=== PATIENT | female | born 1985 | race Caucasian/White ===

== ENCOUNTER 2016-11-03 23:04 | Inpatient (IN) | payer MEDICAID ==
[2016-11-04 00:16] LABS: APPEARANCE,URINE CLEAR; BILIRUBIN,URINE NEGATIVE (NEGATIVE); GLUCOSE, URINE NEGATIVE (NEGATIVE); KETONES,URINE NEGATIVE (NEGATIVE); LEUKOCYTE ESTERASE,URINE NEGATIVE (NEGATIVE); NITRITE,URINE NEGATIVE (NEGATIVE); PROTEIN,URINE NEGATIVE (NEGATIVE); URINE SPECIFIC GRAVITY 1.023; UROBILINOGEN,URINE NEGATIVE mg/dL (<2.0)
[2016-11-04] MEDS ORDERED: ONDANSETRON 4 MG TAB.RAPDIS PO ONE (00:26)
[2016-11-04 01:07] LABS: ABSOLUTE BASOPHILS # (AUTO) 0.1 10^3/uL (0.0-0.2); ABSOLUTE EOSINOPHILS # (AUTO) 0.3 10^3/uL (0.0-0.6); ABSOLUTE LYMPHOCYTES (AUTO) 3.9 10^3/uL (0.5-4.7); ABSOLUTE MONOCYTES (AUTO) 0.9 10^3/uL (0.1-1.4); ABSOLUTE NEUT (AUTO) 10.2 10^3/uL (1.7-8.2); BASOPHILS % (AUTO) 0.4 % (0-2); HEMATOCRIT 37.7 % (36.0-47.0); HEMOGLOBIN 12.5 g/dL (12.0-15.5); HGB HCT DIFFERENCE -0.2; LYMPHOCYTES % (AUTO) 25.3 % (13-45); MEAN CORPUSCULAR HEMOGLOBIN 27.7 pg (27.0-33.4); MEAN CORPUSCULAR HGB CONC 33.1 g/dL (32.0-36.0); MEAN CORPUSCULAR VOLUME 84 fl (80-97); MONOCYTES % (AUTO) 6.2 % (3-13); RED BLOOD COUNT 4.51 10^6/uL (3.72-5.28); RED CELL DISTRIBUTION WIDTH 13.6 % (11.5-14.0); SEGMENTED NEUTROPHILS % (AUTO) 66.1 % (42-78); WHITE BLOOD COUNT 15.4 10^3/uL (4.0-10.5)
[2016-11-04 01:28] LABS: ALANINE AMINOTRANSFERASE 33 U/L (9-52); ALBUMIN 4.2 g/dL (3.5-5.0); ALKALINE PHOSPHATASE 80 U/L (38-126); ANION GAP 12 (5-19); ASPARTATE AMINO TRANSFERASE 60 U/L (14-36); BILIRUBIN,DIRECT 0.2 mg/dL (0.0-0.4); BILIRUBIN,TOTAL 0.2 mg/dL (0.2-1.3); BLOOD UREA NITROGEN 13 mg/dL (7-20); CALCIUM 9.2 mg/dL (8.4-10.2); CARBON DIOXIDE 25 mmol/L (22-30); CHLORIDE 105 mmol/L (98-107); CREATININE RESULT 0.65 mg/dL (0.52-1.25); GLUCOSE 90 mg/dL (75-110); LIPASE 48.9 U/L (23-300); POTASSIUM 3.6 mmol/L (3.6-5.0); SODIUM 141.5 mmol/L (137-145); TOTAL PROTEIN 7.6 g/dL (6.3-8.2)
[2016-11-04] MEDS ORDERED: KETOROLAC TROMETHAMINE INJ/PF 30 MG/1 ML SDV IV ONE (02:00)
[2016-11-04] MEDS: MORPHINE SULFATE 10 MG/ML INJ IV PRN ×4 (02:26→16:47)
[2016-11-04] MEDS ORDERED: LIDOCAINE 2% VISCOUS SOLN 20 ML UDCUP PO ONE (02:48)
[2016-11-04] MEDS ORDERED: METOCLOPRAMIDE HCL ORAL SOLN 10 MG/10 ML UDCUP PO ONE (02:48)
[2016-11-04] MEDS ORDERED: MAG HYDROX/AL HYDROX/SIMETH SUSP 30 ML UDCUP PO ONE (02:48)
--- NOTE | 2016-11-04 02:51 | ER Document Report ---
ED General - General Chief Complaint: Abdominal Pain Stated Complaint: ABDOMINAL PAIN Time Seen by Provider: 11/04/16 00:24 Notes: Patient is a 30-year-old female with past medical history of nephrolithiasis, no prior surgical history who presents with 45 hours of gradually onset epigastric and right upper quadrant abdominal pain. She does describe the pain as a severe, constant, aching, cramping pain. Nothing improves or worsens the pain. States he did start after eating [employer] today. States she had a similar episode 2 weeks ago and told that she may have gallstones. She has also had associated nausea without vomiting. - Related Data Allergies/Adverse Reactions: No Known Allergies Allergy (Unverified 11/03/16 23:53) Past Medical History - General Information source: Patient - Social History Smoking Status: Never Smoker Chew tobacco use (# tins/day): No Frequency of alcohol use: None Drug Abuse: None Lives with: Spouse/Significant other Family History: Reviewed & Not Pertinent Renal/ Medical History: Denies: Hx Peritoneal Dialysis Review of Systems - Review of Systems Notes: Constitutional: Negative for fever. HENT: Negative for sore throat. Eyes: Negative for visual changes. Cardiovascular: Negative for chest pain. Respiratory: Negative for shortness of breath. Gastrointestinal: Positive for abdominal pain and nausea Genitourinary: Negative for dysuria. Musculoskeletal: Negative for back pain. Skin: Negative for rash. Neurological: Negative for headaches, weakness or numbness. 10 point ROS negative except as marked above and in HPI. Physical Exam - Vital signs Vitals: Temp Pulse Resp BP Pulse Ox 98.0 F 78 16 112/67 100 11/03/16 23:53 11/03/16 23:53 11/03/16 23:53 11/03/16 23:53 11/03/16 23:53 Interpretation: Normal Notes: PHYSICAL EXAMINATION: GENERAL: Well-appearing, well-nourished and in no acute distress. HEAD: Atraumatic, normocephalic. EYES: Pupils equal round and reactive to light, extraocular movements intact, sclera anicteric, conjunctiva are normal. ENT: nares patent, oropharynx clear without exudates. Moist mucous membranes. NECK: Normal range of motion, supple without lymphadenopathy LUNGS: Breath sounds clear to auscultation bilaterally and equal. No wheezes rales or rhonchi. HEART: Regular rate and rhythm without murmurs ABDOMEN: Soft, mild right upper quadrant and epigastric abdominal discomfort on palpation, normoactive bowel sounds. No guarding, no rebound. No masses appreciated. EXTREMITIES: Normal range of motion, no pitting or edema. No cyanosis. NEUROLOGICAL: No focal neurological deficits. Moves all extremities spontaneously and on command. PSYCH: Normal mood, normal affect. SKIN: Warm, Dry, normal turgor, no rashes or lesions noted. Course - Re-evaluation Re-evalutation: 11/04/16 02:46 Patient presents with upper abdominal pain and right flank pain that has been present for the past 4-5 hours. She does have a history of a complicated nephrolithiasis in the past that has required lithotripsy. Abdominal exam is overall benign with mild epigastric and right upper quadrant tenderness without rebound or guarding. She has no lower abdominal tenderness. Right upper quadrant ultrasound without evidence of acute cholecystitis. Lipase is normal and no clinical history suggest acute pancreatitis. Her urinalysis is unremarkable without evidence of pyelonephritis or gross blood. A CT scan without contrast is obtained to evaluate for a possible right-sided kidney stone given her CVA tenderness and degree of pain. 11/04/16 03:24 CT has been read as a possible acute appendicitis. Repeat abdominal exam again continues to show right upper, right middle and, very mild right lower quadrant abdominal tenderness. She has no rebound tenderness of the right lower quadrant. At this point her clinical history and exam are somewhat inconsistent with acute appendicitis given CT reading and patient ongoing pain it is possible that this is an atypical or early presentation of acute appendicitis. I discussed this case with the surgeon material preparation worker Dr. Cruz will admit for serial abdominal exams and serial labs. I discussed this with the patient at length. She has been made nothing by mouth on maintenance fluids have been started. - Vital Signs Vital signs: Temp Pulse Resp BP Pulse Ox 98.0 F 78 16 112/67 100 11/03/16 23:53 11/03/16 23:53 11/03/16 23:53 11/03/16 23:53 11/03/16 23:53 - Laboratory Result Diagrams: 11/04/16 00:57 11/04/16 00:57 Laboratory results interpreted by me: 11/04/16 11/04/16 00:57 00:57 WBC 15.4 H Absolute Neutrophils 10.2 H AST 60 H - Diagnostic Test Radiology reviewed: Reports reviewed Discharge - Discharge Clinical Impression: Abdominal pain Qualifiers: Abdominal location: upper abdomen, unspecified Qualified Code(s): R10.10 - Upper abdominal pain, unspecified Condition: Fair Disposition: ADMITTED OBSERVATION Admitting Provider: Surgicalist - Nancy Unit Admitted: Surgical Floor
[2016-11-04] MEDS ORDERED: NORMAL SALINE 1000 ML 1,000 ML IV ONE (03:24)
[2016-11-04] MEDS ORDERED: GLUCAGON,HUMAN RECOMB 1 MG INJ SUBCUT PRN (05:43)
[2016-11-04] MEDS ORDERED: DEXTROSE 40% GEL 15 GM TUBE PO PRN ×2 (05:43)
[2016-11-04] MEDS ORDERED: DEXTROSE 50%-WATER 25 GM/50 ML DISP.SYRIN IV PRN ×2 (05:43)
[2016-11-04] MEDS ORDERED: HYDROMORPHONE HCL INJ/PF 2 MG/ML AMPULE IV PRN (05:58)
[2016-11-04] MEDS ORDERED: ONDANSETRON HCL INJ/PF 4 MG/2 ML SDV IV PRN (05:58)
[2016-11-04] MEDS ORDERED: NORMAL SALINE 1000 ML 1,000 ML IV PRN (05:59)
[2016-11-04 07:15] LABS: ABSOLUTE BASOPHILS # (AUTO) 0.1 10^3/uL (0.0-0.2); ABSOLUTE EOSINOPHILS # (AUTO) 0.2 10^3/uL (0.0-0.6); ABSOLUTE MONOCYTES (AUTO) 0.7 10^3/uL (0.1-1.4); ABSOLUTE NEUT (AUTO) 6.3 10^3/uL (1.7-8.2); BASOPHILS % (AUTO) 0.6 % (0-2); EOSINOPHILS % (AUTO) 2.1 % (0-6); HEMATOCRIT 34.1 % (36.0-47.0); HEMOGLOBIN 11.5 g/dL (12.0-15.5); HGB HCT DIFFERENCE 0.4; MEAN CORPUSCULAR HEMOGLOBIN 28.1 pg (27.0-33.4); MEAN CORPUSCULAR HGB CONC 33.7 g/dL (32.0-36.0); MEAN CORPUSCULAR VOLUME 83 fl (80-97); MONOCYTES % (AUTO) 6.3 % (3-13); RED BLOOD COUNT 4.09 10^6/uL (3.72-5.28); RED CELL DISTRIBUTION WIDTH 13.6 % (11.5-14.0); WHITE BLOOD COUNT 11.3 10^3/uL (4.0-10.5)
[2016-11-04] MEDS ORDERED: DIPHENHYDRAMINE HCL 50 MG/ML VIAL IV PRN ×2 (07:58→09:09)
[2016-11-04] MEDS ORDERED: ACETAMINOPHEN 100 ML IV ONE (08:43)
[2016-11-04] MEDS ORDERED: FENTANYL CITRATE INJ/PF 100 MCG/2 ML AMPUL ONE ×2 (08:43)
[2016-11-04] MEDS ORDERED: PROPOFOL INJ 200 MG/20 ML VIAL IV ONE (08:43)
[2016-11-04] MEDS ORDERED: MIDAZOLAM 2 MG/2 ML INJ ONE (08:43)
[2016-11-04] MEDS ORDERED: DEXMEDETOMIDINE INJ 80 MCG/20 ML VIAL IV ONE (08:44)
[2016-11-04] MEDS ORDERED: MORPHINE SULFATE 10 MG/ML INJ ONE (08:44)
[2016-11-04] MEDS ORDERED: BUPIVACAINE HCL 0.25 % INJ/PF (2.5 MG/1 ML) 30 ML VIAL ONE (08:50)
[2016-11-04] MEDS ORDERED: PIPERACILLIN SODIUM/TAZOBACTAM 3.375 GM in NORMAL SALINE 100 ML IV SCH (09:00)
[2016-11-04] MEDS ORDERED: FENTANYL CITRATE INJ/PF 100 MCG/2 ML AMPUL IV PRN ×3 (09:09)
[2016-11-04] MEDS ORDERED: PROMETHAZINE HCL INJ 25 MG/1 ML VIAL IV PRN ×2 (09:09)
[2016-11-04] MEDS ORDERED: MEPERIDINE HCL/PF INJ 25 MG/1 ML DISP.SYRIN IV PRN (09:09)
[2016-11-04] MEDS ORDERED: OXYCODONE-ACETAMINOPHEN 5-325 MG TABLET PO PRN ×2 (09:09)
[2016-11-04] MEDS ORDERED: MORPHINE SULFATE 10 MG/ML INJ IV PRN (09:09)
[2016-11-04] MEDS ORDERED: SCOPOLAMINE HYDROBROMIDE 1.5 MG PATCH.TD72 ONE (09:26)
[2016-11-04] MEDS ORDERED: CEFAZOLIN INJ 1 GM VIAL ONE (09:47)
[2016-11-04] MEDS ORDERED: BUPIVACAINE HCL 0.25 % INJ/PF (2.5 MG/1 ML) 30 ML VIAL INJ ONE ×2 (09:53→10:40)
--- NOTE | 2016-11-04 09:53 | HISTORY AND PHYSICAL E ---
CHIEF COMPLAINT: Abdominal pains. HISTORY OF PRESENT ILLNESS: This is a 30-year-old female, started complaining of pains in the right side of the abdomen about 7:00 last night after eating a few bites of chicken. There was associated nausea. The pains worsened and went to the emergency room, where a CAT scan of the abdomen was done which showed acute appendicitis. She denies any fever, no chills or dysuria. PAST HISTORY: 1. Right kidney stone about 8 years ago. 2. Tubal ligation in 2012. ALLERGIES: None known. FAMILY HISTORY: Noncontributory. SOCIAL HISTORY: Never smoked. Denies alcohol use and drug abuse. Lives with significant other. REVIEW OF SYSTEMS: As in HPI. Denies fever. No sore throat or visual changes. Denies chest pain, no shortness of breath. GASTROINTESTINAL: Positive for abdominal pains and nausea. GENITOURINARY: Negative for dysuria. MUSCULOSKELETAL: Negative for back pain. SKIN: Negative for rash. NEUROLOGICAL: No headache or numbness. A 10-point review of systems are negative except as noted above and in HPI. PHYSICAL EXAMINATION: VITAL SIGNS: Temp is 98 degrees Fahrenheit, pulse 78 per minute, respirations 16 per minute, blood pressure 112/67, pulse oximetry 100% on room air. GENERAL: A well-developed, well-nourished 30-year- old female, alert and oriented, in no apparent acute distress though complaining of pain in the right side of the abdomen. HEENT: Normocephalic. PERRLA. Conjunctivae normal. Neck, no adenopathy. Moist membranes. Oropharynx clear without exudates. LUNGS: Clear to auscultation, no wheezes. HEART: Regular sinus rhythm without murmurs. ABDOMEN: Soft with tenderness in the right upper quadrant, more severe in the right lower quadrant. No definite rebound at this time. EXTREMITIES: Normal range of motion, no edema. NEUROLOGIC: No focal neurologic deficit. PSYCHIATRIC: Normal mood and affect. SKIN: Warm and dry. IMPRESSION: Acute appendicitis. PLAN: Patient for laparoscopic appendectomy and started on IV antibiotics. DICTATING PHYSICIAN: SARAH ALMARAZ M.D. DT: 0000 PHY#: [id number] ID: [id number] JOB#: [id number] ACCT: [id number] cc:Cheyenne THAYER MD
[2016-11-04] MEDS: PIPERACILLIN SODIUM/TAZOBACTAM 3.375 GM in NORMAL SALINE 100 ML IV SCH ×2 (11:20→17:30)
--- NOTE | 2016-11-04 12:18 | OPERATIVE REPORT E ---
Operative Report NAME: AINSLEY SUTHERLAND : 1985 AGE: 30Y DATE OF SURGERY: 11/04/2016 ROOM: 533 PREOPERATIVE DIAGNOSIS: Acute appendicitis. POSTOPERATIVE DIAGNOSIS: Acute appendicitis. PROCEDURE: Laparoscopic appendectomy. ANESTHESIA: General. SURGEON: SARAH ALMARAZ M.D. INDICATION: This is a 30-year-old female who complained of right-sided abdominal pains around 7 o'clock last night, associated with nausea. She came to the emergency room, where a CAT scan of the abdomen revealed acute appendicitis. Procedure done is laparoscopic appendectomy. DESCRIPTION OF PROCEDURE: After adequate general anesthesia, the patient was placed in the supine position and the abdomen was prepped and draped in the usual sterile fashion. An appropriate timeout was done. Next, an infraumbilical incision was made through the tubal ligation operative scar and carried down to the fascia. The fascia was then grasped on each side with Kika clamp and the fascia opened. Finger dissection was then done to the fascia into the abdominal cavity. There were a few adhesions noted that were lysed bluntly. Next, a Wilian trocar was then inserted into the abdominal cavity and CO2 insufflated up to a pressure of 15 mmHg. Two other trocars were placed under direct vision, a 5 mm in the suprapubic area and a 12 mm in the left lower quadrant. The patient had some further adhesion around the umbilicus, but these were not taken down since it was not obstructing our view. Next, the appendix was then identified and noted to be quite cephalad and retrocecal. The base of the appendix was then dissected bluntly and also with the use of harmonic sheers, making a window. The mesoappendix was further divided with the use of harmonic sheers. The tip of the appendix was noted to be inflamed. The base of the appendix was subsequently stapled with a 35 cm Endo NEDA. The appendix was then placed in the Endobag and pulled out through the umbilical port. Next, the appendiceal stump was then inspected. There was a little oozing and this was controlled with the placement of 2 hemoclips. Further irrigation of the area was done and no further bleeding noted. The right fallopian tube was noted to be normal with a ligature noted from the tubal ligation. The uterus was noted to be normal as well as the right ovary. Next, all the trocars were removed and no bleeding noted. Infraumbilical fascial defect was then closed with a [id number]-ow-tahwy suture using 0-Vicryl and all the skin incisions were closed with running subcuticular 4-0 Vicryl undyed. Dermabond dressing was used. Needle, instrument, and sponge counts were all correct and estimated blood loss was minimal. The patient was then brought to the recovery room in satisfactory condition. DICTATING PHYSICIAN: SARAH ALMARAZ M.D. [id number] PHY#: [id number] ID: [id number] JOB#: [id number] ACCT: [id number] cc:SARAH ALMARAZ M.D. >
[2016-11-04] MEDS: OXYCODONE-ACETAMINOPHEN 5-325 MG TABLET PO PRN ×2 (14:16→20:45)
[2016-11-04] MEDS ORDERED: NEOSTIGMINE METHYLSULFATE 10 MG/10 ML VIAL ONE ×2 (16:41→16:42)
[2016-11-04] MEDS ORDERED: SUCCINYLCHOLINE CHLORIDE INJ 200 MG/10 ML VIAL ONE ×2 (16:41→16:42)
[2016-11-04] MEDS ORDERED: DEXAMETHASONE SOD PHOSPHATE INJ 4 MG/1 ML VIAL ONE ×2 (16:41→16:42)
[2016-11-04] MEDS ORDERED: GLYCOPYRROLATE INJ 0.4 MG/2 ML VIAL ONE ×2 (16:41→16:42)
[2016-11-04] MEDS ORDERED: KETOROLAC TROMETHAMINE 60 MG/2 ML SDV ONE ×2 (16:41→16:42)
[2016-11-04] MEDS ORDERED: ROCURONIUM BROMIDE INJ 50 MG/5 ML VIAL IV ONE ×2 (16:41→16:42)
[2016-11-04] MEDS ORDERED: LIDOCAINE 2% INJ-PF (20 MG/ML) 10 ML AMPUL ONE ×2 (16:41→16:42)
[2016-11-04] MEDS ORDERED: ONDANSETRON HCL INJ/PF 4 MG/2 ML SDV ONE ×2 (16:41→16:42)
[2016-11-05] MEDS: OXYCODONE-ACETAMINOPHEN 5-325 MG TABLET PO PRN (01:47)
[2016-11-05] MEDS: PIPERACILLIN SODIUM/TAZOBACTAM 3.375 GM in NORMAL SALINE 100 ML IV SCH (01:47)
[2016-11-05] MEDS ORDERED: PIPERACILLIN/TAZOBACTAM 3.375 GM VIAL IV ONE (01:55)
[2016-11-05] MEDS: MORPHINE SULFATE 10 MG/ML INJ IV PRN (02:39)
[2016-11-05] MEDS ORDERED: DIPHENHYDRAMINE HCL 50 MG/ML VIAL IV PRN (14:20)
[2016-11-05 14:36] VITALS: BP 98/52
--- NOTE | 2016-11-09 19:39 | DISCHARGE SUMMARY E ---
Discharge Summary NAME: AINSLEY SUTHERLAND : 1985 AGE: 30Y ADMITTED: 11/04/2016 DISCHARGED: 11/05/2016 FINAL DIAGNOSIS: Acute appendicitis. PROCEDURE DONE: Laparoscopic appendectomy on 11/04/2016. SUMMARY: This is a 30-year-old female with abdominal pains and CAT scan revealed acute appendicitis. She was taken to the OR on 11/04/2016 and a laparoscopic appendectomy was performed for an acute appendicitis. Postoperatively the patient did very well and was discharged improved on 11/05/2016. A prescription for Percocet was given and she was advised not to do any lifting for more than 10 pounds for the next 2 weeks and then gradually increase her activity to no restrictions for about 4 weeks from the time of surgery. She was able to tolerate her diet well. She will be followed up in the surgical clinic in about a week. DICTATING PHYSICIAN: SARAH ALMARAZ M.D. [id number] PHY#: [id number] ID: [id number] JOB#: [id number] ACCT: [id number] cc:[facility], SARAH MOORE MD, M.D, M.D. [facility], [facility] >
== END 2016-11-05 15:50 | disposition home or self-care (01) | DRG 343 ==
LOC: ER 23:04 → UNDOADMOB 11-04 03:56 → OBSVTOIN 11-04 03:56 → EH 11-04 03:56 → INTOOBSV 11-04 03:56 → 5 11-04 05:20 → EH 11-04 05:20 → OBSVTOIN 11-04 05:43 → 5 11-04 05:43 → EH 11-04 05:43
PROVIDERS: ADMIT Surgery; ATTEND Surgery
PROC: 0DTJ4ZZ Resection of Appendix, Percutaneous Endoscopic Approach (ICD-10-PCS; principal; 2016-11-04 09:30)
DX: K35.80 Unspecified acute appendicitis (principal); Z87.442 Personal history of urinary calculi
CPT/HCPCS: 36415; 74176; 76705; 80053; 81001; 81025; 83690; 840; 85025; 88304; 96361; 96374; 96375; 96376; 99285; J0131; J0330; J0690; J1100; J1170; J1200; J1885; J2250; J2270; J2405; J2543; J2704; J3010; J3490; J7030; S0119

== ENCOUNTER 2016-11-09 21:53 | Emergency (ER) | payer MEDICAID ==
[2016-11-10] MEDS ORDERED: NORMAL SALINE 1000 ML 1,000 ML IV ONE (00:20)
--- NOTE | 2016-11-10 00:22 | ER Document Report ---
ED General - General Chief Complaint: Chest Pain Stated Complaint: NAUSEA Time Seen by Provider: 11/10/16 00:11 Notes: Patient is a 30-year-old female who comes emergency department for chief complaint of feeling lightheaded, feeling weak, and feeling pains in the right side of her chest which are sharp and intermittent. Symptoms started yesterday. She denies shortness of breath, fever, she states that she had an appendectomy at this facility on November 04, 2016, she states her wounds are a little bit sore but have not worsened, she denies any particular abdominal pain or flank pain. She is not currently on any medications. LMP the first of the month. She denies any other medical history, she does not smoke, she denies any contraceptive, she denies personal or family history of blood clots. TRAVEL OUTSIDE OF THE [place] IN LAST 30 DAYS: No - Related Data Allergies/Adverse Reactions: No Known Allergies Allergy (Unverified 11/03/16 23:53) Past Medical History - General Information source: Patient - Social History Smoking Status: Never Smoker Frequency of alcohol use: None Drug Abuse: None Lives with: Family Family History: Reviewed & Not Pertinent Patient has suicidal ideation: No Patient has homicidal ideation: No Renal/ Medical History: Denies: Hx Peritoneal Dialysis Psychiatric Medical History: Denies: Hx Depression Past Surgical History: Reports: Hx Appendectomy - Immunizations Immunizations up to date: Yes Hx Diphtheria, Pertussis, Tetanus Vaccination: Yes Review of Systems - Review of Systems Constitutional: No symptoms reported EENT: No symptoms reported Cardiovascular: See HPI Respiratory: See HPI Gastrointestinal: See HPI Genitourinary: No symptoms reported Female Genitourinary: No symptoms reported Musculoskeletal: No symptoms reported Skin: No symptoms reported Hematologic/Lymphatic: No symptoms reported Neurological/Psychological: No symptoms reported Physical Exam - Vital signs Vitals: Temp Pulse Resp BP Pulse Ox 97.5 F 97 18 110/63 99 11/09/16 21:57 11/09/16 21:57 11/09/16 21:57 11/09/16 21:57 11/09/16 21:57 Interpretation: Normal - General General appearance: Appears well, Alert In distress: None - HEENT Head: Normocephalic, Atraumatic Eyes: Normal Conjunctiva: Normal Extraocular movements intact: Yes Eyelashes: Normal Pupils: PERRL Sinus: Normal Nasal: Normal Mouth/Lips: Normal Mucous membranes: Normal Pharynx: Normal Neck: Normal - Respiratory Respiratory status: No respiratory distress Chest status: Tender - Very mild generalized nonspecific anterior chest wall tenderness Breath sounds: Normal Chest palpation: Normal - Cardiovascular Rhythm: Regular. No: Tachycardia Heart sounds: Normal auscultation, S1 appreciated, S2 appreciated Murmur: No - Abdominal Inspection: Healed incision - There are 3 healed incisions, one of the umbilicus , 1 below this, and one to the left lower abdomen, good healing, no significant erythema, abnormal heat, drainage, or tenderness noted. Distension: No distension Bowel sounds: Normal Tenderness: Nontender - Soft and nontender abdomen throughout. No: Tender, Guarding Organomegaly: No organomegaly - Back Back: Normal, Nontender. No: Tender, CVA tenderness - Extremities General upper extremity: Normal inspection, Nontender, Normal color, Normal ROM , Normal temperature General lower extremity: Normal inspection, Nontender, Normal color, Normal ROM , Normal temperature, Normal weight bearing. No: Rubia's sign - Neurological Neuro grossly intact: Yes Cognition: Normal Orientation: AAOx4 [place] Coma Scale Eye Opening: Spontaneous [place] Coma Scale Verbal: Oriented [place] Coma Scale Motor: Obeys Commands Dmias Coma Scale Total: 15 Speech: Normal Cranial nerves: Normal Cerebellar coordination: Normal Motor strength normal: LUE, RUE, LLE, RLE Additional motor exam normals: Equal manager of selection and assessment Sensory: Normal - Psychological Associated symptoms: Normal affect, Normal mood - Skin Skin Temperature: Warm Skin Moisture: Dry Skin Color: Normal Course - Re-evaluation Re-evalutation: EKG and chest x-ray with no acute abnormalities. Mild leukocytosis, no shift, no fever, borderline initial tachycardia. Chemistry unremarkable, hCG is negative. Patient is denying any abdominal pain other than very mild soreness at the surgical wound sites, soft and unremarkable abdomen on exam. Patient is continuing to complain of chest pains. Because of recent surgery after discussion because of normal workup otherwise CTA will be performed to rule out pulmonary emboli. Discussed with Dr. Arellano. CT with no acute abnormalities. Patient remains well-appearing, tachycardia resolved, patient was given IV fluids and she states she is very happy with the results, she states she only has mild intermittent pains which have improved and she is ready to go home. Patient only has pain occasions at home to take, she has her routine follow-up, discussed return precautions with patient, patient states understanding and agreement. - Vital Signs Vital signs: Temp Pulse Resp BP Pulse Ox 97.6 F 89 17 115/70 99 11/10/16 04:57 11/10/16 04:57 11/10/16 04:57 11/10/16 04:57 11/10/16 04:57 - Laboratory Result Diagrams: 11/10/16 00:39 11/10/16 02:27 Laboratory results interpreted by me: 11/10/16 00:39 WBC 12.5 H Discharge - Discharge Clinical Impression: Chest pain Qualifiers: Chest pain type: unspecified Qualified Code(s): R07.9 - Chest pain, unspecified Condition: Stable Disposition: HOME, SELF-CARE Additional Instructions: The imaging of the chest does not show a blood clot or other acute concerning abnormality. Laboratory workup does not show any concerning findings. The wounds appear to be healing normally. Apply heat to your chest wall, rest and avoid lifting, take your Advil and/or your Percocet if needed. Follow-up with your postoperative appointment. Return to emergency department for any concerning symptoms - difficulty breathing, fever, vomiting, passing out, etc.
[2016-11-10 00:56] LABS: ABSOLUTE BASOPHILS # (AUTO) 0.1 10^3/uL (0.0-0.2); ABSOLUTE EOSINOPHILS # (AUTO) 0.4 10^3/uL (0.0-0.6); ABSOLUTE LYMPHOCYTES (AUTO) 4.4 10^3/uL (0.5-4.7); ABSOLUTE MONOCYTES (AUTO) 0.9 10^3/uL (0.1-1.4); ABSOLUTE NEUT (AUTO) 6.7 10^3/uL (1.7-8.2); BASOPHILS % (AUTO) 1.1 % (0-2); EOSINOPHILS % (AUTO) 2.9 % (0-6); HEMATOCRIT 38.3 % (36.0-47.0); HEMOGLOBIN 13.1 g/dL (12.0-15.5); LYMPHOCYTES % (AUTO) 35.3 % (13-45); MEAN CORPUSCULAR HEMOGLOBIN 28.6 pg (27.0-33.4); MEAN CORPUSCULAR HGB CONC 34.1 g/dL (32.0-36.0); MEAN CORPUSCULAR VOLUME 84 fl (80-97); MONOCYTES % (AUTO) 7.3 % (3-13); RED BLOOD COUNT 4.57 10^6/uL (3.72-5.28); RED CELL DISTRIBUTION WIDTH 13.6 % (11.5-14.0); SEGMENTED NEUTROPHILS % (AUTO) 53.4 % (42-78); WHITE BLOOD COUNT 12.5 10^3/uL (4.0-10.5)
[2016-11-10 02:45] LABS: ALANINE AMINOTRANSFERASE 43 U/L (9-52); ALBUMIN 4.3 g/dL (3.5-5.0); ALKALINE PHOSPHATASE 74 U/L (38-126); ANION GAP 11 (5-19); ASPARTATE AMINO TRANSFERASE 30 U/L (14-36); BILIRUBIN,DIRECT 0.4 mg/dL (0.0-0.4); BILIRUBIN,TOTAL 0.4 mg/dL (0.2-1.3); BLOOD UREA NITROGEN 11 mg/dL (7-20); CALCIUM 9.8 mg/dL (8.4-10.2); CARBON DIOXIDE 27 mmol/L (22-30); CHLORIDE 102 mmol/L (98-107); CREATININE RESULT 0.76 mg/dL (0.52-1.25); GLUCOSE 98 mg/dL (75-110); POTASSIUM 4.1 mmol/L (3.6-5.0); TOTAL PROTEIN 7.4 g/dL (6.3-8.2)
[2016-11-10 05:00] VITALS: BP 115/70
--- NOTE | 2016-11-10 17:44 | EKG REPORT ---
SEVERITY:- BORDERLINE ECG - SINUS RHYTHM INFERIOR Q WAVES, PROBABLY NORMAL VARIATION : Confirmed by: Tawana Beckford MD 10-Nov-2016 17:43:45
== END 2016-11-10 04:57 | disposition home or self-care (01) ==
LOC: ER 21:53
DX: R07.9 Chest pain, unspecified (principal); R11.0 Nausea; R53.1 Weakness
CPT/HCPCS: 93005; 99285; 96360; 36415; 84703; 85025; 80053; 71020; 71275; 93010; J7030

== ENCOUNTER 2017-07-30 22:24 | Emergency (ER) | payer MEDICAID ==
--- NOTE | 2017-07-30 23:01 | ER Document Report ---
ED Medical Screen (RME) - General Chief Complaint: Chest Pain Stated Complaint: CHEST PAIN Time Seen by Provider: 07/30/17 22:57 Mode of Arrival: Ambulatory Information source: Patient Notes: 31-year-old female presented ED for complaint of chest pain off and on for a week. She states the chest pain goes from her chest through to her back just behind her left breast. She states her chest feels very heavy at times when she takes a breath. States she has had some sneezing maybe a little bit of runny nose. States when she lifts her left arm over her head sometimes it actually helps with the pain. States she had a tooth pulled 2 weeks ago no recent surgery. She is a former smoker no cigarettes in 2 weeks. I have greeted and performed a rapid initial assessment of this patient. A comprehensive ED assessment and evaluation of the patient, analysis of test results and completion of medical decision making process will be conducted by an additional ED providers. TRAVEL OUTSIDE OF THE [place] IN LAST 30 DAYS: No - Related Data Allergies/Adverse Reactions: No Known Allergies Allergy (Unverified 11/03/16 23:53) Past Medical History - Social History Chew tobacco use (# tins/day): No Drug Abuse: None Renal/ Medical History: Denies: Hx Peritoneal Dialysis Psychiatric Medical History: Denies: Hx Depression Past Surgical History: Reports: Hx Appendectomy - Immunizations Immunizations up to date: Yes Hx Diphtheria, Pertussis, Tetanus Vaccination: Yes Physical Exam - Vital signs Vitals: Temp Pulse Resp BP Pulse Ox 98.4 F 71 16 103/57 L 90 L 07/30/17 22:28 07/30/17 22:28 07/30/17 22:28 07/30/17 22:28 07/30/17 22:28 Course - Vital Signs Vital signs: Temp Pulse Resp BP Pulse Ox 98.4 F 71 16 103/57 L 90 L 07/30/17 22:28 07/30/17 22:28 07/30/17 22:28 07/30/17 22:28 07/30/17 22:28
[2017-07-30 23:48] LABS: ABSOLUTE BASOPHILS # (AUTO) 0.1 10^3/uL (0.0-0.2); ABSOLUTE EOSINOPHILS # (AUTO) 0.3 10^3/uL (0.0-0.6); ABSOLUTE MONOCYTES (AUTO) 0.8 10^3/uL (0.1-1.4); ABSOLUTE NEUT (AUTO) 6.4 10^3/uL (1.7-8.2); BASOPHILS % (AUTO) 0.8 % (0-2); HEMATOCRIT 37.3 % (36.0-47.0); HEMOGLOBIN 12.8 g/dL (12.0-15.5); LYMPHOCYTES % (AUTO) 39.4 % (13-45); MEAN CORPUSCULAR HEMOGLOBIN 28.7 pg (27.0-33.4); MEAN CORPUSCULAR HGB CONC 34.5 g/dL (32.0-36.0); MEAN CORPUSCULAR VOLUME 83 fl (80-97); MONOCYTES % (AUTO) 6.7 % (3-13); PLATELET COUNT 377 10^3/uL (150-450); RED BLOOD COUNT 4.47 10^6/uL (3.72-5.28); RED CELL DISTRIBUTION WIDTH 13.6 % (11.5-14.0); SEGMENTED NEUTROPHILS % (AUTO) 51.1 % (42-78); TOTAL CELLS COUNTED % (AUTO) 100 %; WHITE BLOOD COUNT 12.6 10^3/uL (4.0-10.5)
[2017-07-30] MEDS: ASPIRIN 81 MG TABLET, CHEWABLE PO ONE (23:50)
[2017-07-31 00:05] LABS: ALANINE AMINOTRANSFERASE 37 U/L (9-52); ALBUMIN 4.6 g/dL (3.5-5.0); ALKALINE PHOSPHATASE 74 U/L (38-126); ANION GAP 11 (5-19); ASPARTATE AMINO TRANSFERASE 25 U/L (14-36); BILIRUBIN,DIRECT 0.1 mg/dL (0.0-0.4); BILIRUBIN,TOTAL 0.1 mg/dL (0.2-1.3); BLOOD UREA NITROGEN 12 mg/dL (7-20); CALCIUM 9.8 mg/dL (8.4-10.2); CARBON DIOXIDE 27 mmol/L (22-30); CHLORIDE 102 mmol/L (98-107); CREATINE KINASE 100 U/L (30-135); GLUCOSE 90 mg/dL (75-110); LIPASE 93.7 U/L (23-300); SODIUM 139.9 mmol/L (137-145); TOTAL PROTEIN 7.3 g/dL (6.3-8.2)
[2017-07-31 00:09] LABS: APPEARANCE,URINE CLEAR; BILIRUBIN,URINE NEGATIVE (NEGATIVE); COLOR,URINE YELLOW; GLUCOSE, URINE NEGATIVE (NEGATIVE); KETONES,URINE NEGATIVE (NEGATIVE); LEUKOCYTE ESTERASE,URINE NEGATIVE (NEGATIVE); NITRITE,URINE NEGATIVE (NEGATIVE); PROTEIN,URINE NEGATIVE (NEGATIVE); URINE SPECIFIC GRAVITY 1.018; UROBILINOGEN,URINE NEGATIVE mg/dL (<2.0)
[2017-07-31 00:15] LABS: CREATINE KINASE MB 0.28 ng/mL (<4.55)
[2017-07-31 00:21] LABS: TROPONIN I < 0.012 ng/mL
--- NOTE | 2017-07-31 00:47 | ER Document Report ---
ED General - General Chief Complaint: Chest Pain Stated Complaint: CHEST PAIN Time Seen by Provider: 07/30/17 22:57 Mode of Arrival: Ambulatory Notes: 31-year-old female with no past medical history presents with 1 week of intermittent chest pain left-sided "behind my boob" radiating straight through to her back nonpleuritic nonexertional and intermittent. No cough but positive shortness of breath. Denies leg swelling smoking long flights or recent surgeries. No family history of clotting disorders. TRAVEL OUTSIDE OF THE [place] IN LAST 30 DAYS: No - Related Data Allergies/Adverse Reactions: No Known Allergies Allergy (Unverified 11/03/16 23:53) Past Medical History - General Information source: Patient - Social History Smoking Status: Former Smoker Chew tobacco use (# tins/day): No Drug Abuse: None Family History: Reviewed & Not Pertinent Patient has suicidal ideation: No Patient has homicidal ideation: No Renal/ Medical History: Denies: Hx Peritoneal Dialysis Psychiatric Medical History: Denies: Hx Depression Past Surgical History: Reports: Hx Appendectomy - Immunizations Immunizations up to date: Yes Hx Diphtheria, Pertussis, Tetanus Vaccination: Yes Review of Systems - Review of Systems Notes: REVIEW OF SYSTEMS GEN: Denies fever, chills, weight loss ENT: Denies sore throat, nasal discharge, ear pain EYES: Denies blurry vision, eye pain, discharge CV: Chest pain denies, palpitations, edema RESP: Denies cough, wheezing GI: Denies abdominal pain, nausea, vomiting, diarrhea MSK: Denies joint pain/swelling, edema, SKIN: Denies rash, skin lesions LYMPH: Denies swollen glands/lymph nodes NEURO: Denies headache, focal weakness or numbness, dizziness PSYCH: Denies depression, suicidal or homicidal ideation PHYSICAL EXAMINATION General: No acute distress, well-nourished Head: Atraumatic, normocephalic ENT: Mouth normal, oropharynx moist, no exudates or tonsillar enlargement Eyes: Conjunctiva normal, pupils equal, lids normal Neck: No JVD, supple, no guarding CVS: Normal rate, regular rhythm, no murmurs Resp: No resp distress, equal and normal breath sounds bilaterally GI: Nondistended, soft, no tenderness to palpation, no rebound or guarding Ext: No deformities, no edema, normal range of motion in upper and lower ext Back: No CVA or midline TTP Skin: No rash, warm Lymphatic: No lymphadeopathy noted Neuro: Awake, alert. Face symmetric. GCS 15. Physical Exam - Vital signs Vitals: Temp Pulse Resp BP Pulse Ox 98.4 F 71 16 103/57 L 90 L 07/30/17 22:28 07/30/17 22:28 07/30/17 22:28 07/30/17 22:28 07/30/17 22:28 Course - Re-evaluation Re-evalutation: 07/31/17 00:46 Healthy young female presents with left-sided chest pain radiating to her back. Pulses are equal she has no neuro symptoms or symptoms below the diaphragm and no history of hypertension so I doubt dissection. EKG is normal and her with her age I think ACS is unlikely. Seen by the nurse practitioner at triage ordered a d-dimer. This was elevated above 500. Will proceed with CTA patient consented verbally. 07/31/17 01:43 Troponin other labs EKG and CTA negative. Will discharge with diagnosis of unspecified chest pain, recommend Motrin and follow-up with primary care. Insert discharge I have discussed with the patient there likely diagnosis, aftercare plan, follow-up plans and my usual and customary return precautions. They verbalized understanding of this. - Vital Signs Vital signs: Temp Pulse Resp BP Pulse Ox 98.4 F 71 16 103/57 L 90 L 07/30/17 22:28 07/30/17 22:28 07/30/17 22:28 07/30/17 22:28 07/30/17 22:28 - Laboratory Result Diagrams: 07/30/17 23:34 07/30/17 23:34 Laboratory results interpreted by me: 07/30/17 07/30/17 07/30/17 23:34 23:34 23:34 WBC 12.6 H Absolute Lymphocytes 5.0 H D-Dimer 0.52 H Total Bilirubin 0.1 L - Diagnostic Test Radiology reviewed: Image reviewed, Reports reviewed - EKG Interpretation by Me EKG shows normal: Sinus rhythm Rate: Normal Rhythm: NSR When compared to previous EKG there are: Previous EKG unavailable Additional EKG results interpreted by me: 07/31/17 00:47 No RSR prime T-wave inversions or signs of ischemia. Discharge - Discharge Clinical Impression: Chest pain, unspecified Qualifiers: Chest pain type: other chest pain Qualified Code(s): R07.89 - Other chest pain Condition: Good Disposition: HOME, SELF-CARE Instructions: Chest Wall Pain ([facility]) Additional Instructions: You had testing for heart attack and pulmonary embolus including a CAT scan all of which was normal. Please follow-up with your primary care provider and take ibuprofen for pain.
--- NOTE | 2017-07-31 01:28 | RADIOLOGY REPORT (SQ) ---
EXAM DESCRIPTION: CTA of the chest per PE protocol with contrast. CLINICAL HISTORY: CP, elev dimer(0.52) COMPARISON: 11/10/2016 TECHNIQUE: CTA of the chest obtained following the uncomplicated intravenous administration of 100 mL Isovue-370. 3-D/MIP reformatted images of the chest available for evaluation. FINDINGS: Chest: Mediastinal windows demonstrate an contrast bolus. No pulmonary embolus identified. Visualized thyroid gland is unremarkable. Great vessels have normal anatomic configuration. No cardiomegaly, coronary artery atherosclerosis, or pericardial effusion. No abnormalities of the esophagus. Scattered mediastinal lymph nodes are not enlarged by CT criteria. Lung windows demonstrate no consolidation, pneumothorax, or pleural effusion. No abnormalities of the visualized trachea or airways. Limited images of the upper abdomen demonstrate no abnormalities of the visualized liver, spleen, pancreas, adrenal glands, gallbladder, or kidneys. No destructive osseous lesions. DLP: 433.71 mGycm IMPRESSION: 1. No pulmonary embolus identified. This exam was performed according to our departmental dose-optimization program, which includes automated exposure control, adjustment of the mA and/or kV according to patient size and/or use of iterative reconstruction technique.
[2017-07-31 01:58] VITALS: BP 101/51
--- NOTE | 2017-07-31 09:13 | EKG REPORT ---
SEVERITY:- BORDERLINE ECG - SINUS RHYTHM INFERIOR Q WAVES, PROBABLY NORMAL VARIATION : Confirmed by: Margie Lion 31-Jul-2017 09:13:15
== END 2017-07-31 01:58 | disposition home or self-care (01) ==
LOC: ER 22:24
DX: R07.9 Chest pain, unspecified (principal); R06.02 Shortness of breath; R79.1 Abnormal coagulation profile; Z87.891 Personal history of nicotine dependence
CPT/HCPCS: 36415; 71275; 80053; 81001; 82550; 82553; 83690; 84484; 84703; 85025; 85379; 93005; 93010; 99285

== ENCOUNTER 2017-11-01 19:47 | Emergency (ER) | payer MEDICAID ==
[2017-11-01 19:58] VITALS: BP 107/61
[2017-11-01] MEDS ORDERED: HYDROCODONE/ACETAMINOPHEN 5-325 MG (6 TAB/ER DISP) PO PRN (20:28)
--- NOTE | 2017-11-01 20:32 | ER Document Report ---
HPI - HPI Patient complains to provider of: burn to left forearm Pain Level: 5 Context: Patient is a 31 year old female that comes to the ED for chief complaint of a burn to her left forearm. She was frying chicken, the handle bent and some of the grease splashed on her left forearm. She is right handed. She washed the area prior to arrival with cold water, she started to notice redness on her left forearm and over the left wrist and she came to be evaluated. She denies any other areas of concern. Up-to-date on vaccinations, LMP within the past month. - REPRODUCTIVE Reproductive: DENIES: : Past Medical History - General Information source: Patient - Social History Smoking Status: Never Smoker Frequency of alcohol use: None Drug Abuse: None Lives with: Family Family History: Reviewed & Not Pertinent - Medical History Medical History: Negative Renal/ Medical History: Denies: Hx Peritoneal Dialysis Psychiatric Medical History: Denies: Hx Depression Past Surgical History: Reports: Hx Appendectomy - Immunizations Immunizations up to date: Yes Hx Diphtheria, Pertussis, Tetanus Vaccination: Yes Vertical Provider Document - CONSTITUTIONAL General Appearance: WD/WN, No Apparent Distress - INFECTION CONTROL TRAVEL OUTSIDE OF THE [place] IN LAST 30 DAYS: No - HEENT HEENT: Atraumatic, Normocephalic - NECK Neck: Normal Inspection - RESPIRATORY Respiratory: Breath Sounds Normal, No Respiratory Distress - CARDIOVASCULAR Cardiovascular: Regular Rate, Regular Rhythm - GI/ABDOMEN Gastrointestinal: Abdomen Soft, Abdomen Non-Tender - BACK Back: Normal Inspection - MUSCULOSKELETAL/EXTREMETIES Musculoskeletal/Extremeties: Tender - There is a streak of redness consistent with a first-degree burn over the volar wrist about 2 and half centimeters in length, there is another similar area over the left forearm over the volar surface, no blisters, no swelling, full range of motion of the wrist, elbow, fingers, no abnormality noted over the hand, normal distal neurovascular exam. Normal upper extremity exam otherwise. Course - Re-evaluation Re-evalutation: Small areas of superficial/first-degree sanchez over the left forearm and left wrist, not circumferential, no swelling, no blistering, normal distal N/V exam. Discussed treatment, expectations, pain control, follow-up, return precautions. Patient states understanding and agreement. - Vital Signs Vital signs: Temp Pulse Resp BP Pulse Ox 98.3 F 77 18 107/61 98 11/01/17 19:55 11/01/17 19:55 11/01/17 19:55 11/01/17 19:55 11/01/17 19:55 Discharge - Discharge Clinical Impression: Burn of left forearm Qualifiers: Encounter type: initial encounter Burn degree: superficial (1st degree) Qualified Code(s): T22.112A - Burn of first degree of left forearm, initial encounter Condition: Stable Disposition: HOME, SELF-CARE Additional Instructions: Your examination is consistent with a first-degree burn of your forearm. I recommend applying a cold towel or ice to the area, this helps with pain, you have been provided pain medication tonight to go home with the take to help you sleep, you can also take the Toradol prescribed if needed (you can drive while taking this). This should heal over the course of the next 7 days. Follow-up with primary care. Return for any concerning symptoms including swelling or pain. Prescriptions: Ketorolac Tromethamine [Toradol 10 mg Tablet] 10 mg PO Q8HP PRN #30 tablet PRN Reason: Referrals: LESLEY OBRIEN [Primary Care Provider] - Follow up as needed
== END 2017-11-01 20:43 | disposition home or self-care (01) ==
LOC: ER 19:47
DX: T22.112A Burn of first degree of left forearm, initial encounter (principal); T23.172A Burn of first degree of left wrist, initial encounter; X10.2XXA Contact with fats and cooking oils, initial encounter; Y93.G3 Activity, cooking and baking; Y92.009 Unspecified place in unspecified non-institutional (private) residence as the place of occurrence of the external cause
CPT/HCPCS: 99283

== ENCOUNTER 2018-07-11 02:34 | Emergency (ER) | payer SELFPAY ==
--- NOTE | 2018-07-11 03:42 | ER Document Report ---
ED GI/ - General Mode of Arrival: Ambulatory Information source: Patient TRAVEL OUTSIDE OF THE [place] IN LAST 30 DAYS: No - General Chief Complaint: Sore Throat Stated Complaint: VOMITING BLOOD Time Seen by Provider: 07/11/18 03:23 Notes: 32-year-old female who presents to the emergency department today with complaints of feeling car sick prior to arrival today.. Patient states with this carsickness she has had associated nausea with vomiting. Patient states that the car sickness is not unusual for her however it is not usual for her to vomit streaks of blood which she noticed today. Family states there were. (TIN ESPINO) Patient had several episodes of emesis with small streaks of blood, bloody is not coffee-ground in nature and is less than a handful. (ALYSON RIVERS) - Related Data Allergies/Adverse Reactions: No Known Allergies Allergy (Unverified 11/03/16 23:53) Past Medical History - General Information source: Patient - Social History Smoking Status: Never Smoker Cigarette use (# per day): No Chew tobacco use (# tins/day): No Drug Abuse: None Lives with: Family Family History: Reviewed & Not Pertinent Patient has suicidal ideation: No Patient has homicidal ideation: No Renal/ Medical History: Denies: Hx Peritoneal Dialysis Psychiatric Medical History: Denies: Hx Depression Past Surgical History: Reports: Hx Appendectomy, Hx Tubal Ligation - Immunizations Immunizations up to date: Yes Hx Diphtheria, Pertussis, Tetanus Vaccination: Yes Review of Systems - Review of Systems Constitutional: See HPI, Other - car sick EENT: No symptoms reported, Throat pain Cardiovascular: No symptoms reported Respiratory: No symptoms reported Gastrointestinal: See HPI, Abdominal pain, Nausea, Vomiting Genitourinary: No symptoms reported Female Genitourinary: No symptoms reported Musculoskeletal: No symptoms reported Skin: No symptoms reported Hematologic/Lymphatic: No symptoms reported Neurological/Psychological: No symptoms reported -: Yes All other systems reviewed and negative Physical Exam - Vital signs Vitals: Temp Pulse Resp BP Pulse Ox 98.1 F 81 18 98/48 L 100 07/11/18 02:45 07/11/18 02:45 07/11/18 02:45 07/11/18 02:45 07/11/18 02:45 - Notes Notes: PHYSICAL EXAM GENERAL: Alert, interacts well. No acute distress. HEAD: Normocephalic, atraumatic. EYES: Pupils equal, round, and reactive to light. Extraocular movements intact. ENT: Oral mucosa moist, tongue midline. NECK: Full range of motion. Supple. Trachea midline. Right tonsil slightly larger than left which is baseline for the patient according to her. There is no active bleeding noted in the posterior oropharynx. LUNGS: Clear to auscultation bilaterally, no wheezes, rales, or rhonchi. No respiratory distress. HEART: Regular rate and rhythm. No murmurs, gallops, or rubs. ABDOMEN: Soft, non-tender. Non-distended. Bowel sounds present in all 4 quadrants. No guarding, rigidity, or rebound. EXTREMITIES: Moves all 4 extremities spontaneously. No edema, radial and dorsalis pedis pulses 2/4 bilaterally. No cyanosis. NEUROLOGICAL: Alert and oriented x3. Normal speech. PSYCH: Normal affect, normal mood. SKIN: Warm, dry, normal turgor. No rashes or lesions noted. (TIN ESPINO) Course - Re-evaluation Re-evalutation: 07/11/18 03:45 Patient's abdomen is benign, no evidence of nosebleed, no blood in posterior oropharynx, doubt ulceration, suspect Shira-Rico tears from repeated vomiting, however due to history of heartburn patient will also be started on Zantac and Carafate. Discharged home. (ALYSON RIVERS) - Vital Signs Vital signs: Temp Pulse Resp BP Pulse Ox 98.1 F 78 16 106/70 98 07/11/18 02:45 07/11/18 04:00 07/11/18 04:00 07/11/18 04:00 07/11/18 04:00 Discharge - Discharge Clinical Impression: Hematemesis with nausea Motion sickness Qualifiers: Encounter type: initial encounter Qualified Code(s): T75.3XXA - Motion sickness, initial encounter Condition: Stable Disposition: HOME, SELF-CARE Prescriptions: Ranitidine HCl [Zantac 75 mg Tablet] 75 mg PO BID #30 tablet Sucralfate [Carafate Susp 1 Gm/10 Ml Udcup] 1 gm PO TID #30 udc Scribe Attestation: 07/11/18 08:06 I personally performed the services described in the documentation, reviewed and edited the documentation which was dictated to the scribe in my presence, and it accurately records my words and actions. (ALYSON RIVERS) Scribe Documentation - Scribe Written by Angel:: Angel Carpenter, 07/11/2018 [id number] acting as scribe for :: Campos
[2018-07-11] MEDS ORDERED: ONDANSETRON ODT 4 MG TAB (6 TAB/ER DISP) PO PRN (03:46)
[2018-07-11 04:13] VITALS: BP 106/70
== END 2018-07-11 04:15 | disposition home or self-care (01) ==
LOC: ER 02:34
DX: K92.0 Hematemesis (principal); T75.3XXA Motion sickness, initial encounter; R10.9 Unspecified abdominal pain; J02.9 Acute pharyngitis, unspecified; Z90.49 Acquired absence of other specified parts of digestive tract; Z98.51 Tubal ligation status
CPT/HCPCS: 99283

== ENCOUNTER 2018-09-09 13:30 | Emergency (ER) | payer SELFPAY ==
[2018-09-09] MEDS ORDERED: FLUCONAZOLE 100 MG TABLET PO ONE (14:02)
--- NOTE | 2018-09-09 14:06 | ER Document Report ---
ED General - General Chief Complaint: Vaginal Itching Stated Complaint: POSSSIBLE UTI Time Seen by Provider: 09/09/18 13:58 TRAVEL OUTSIDE OF THE [place] IN LAST 30 DAYS: No - HPI Notes: Patient is a 32-year-old female that presents to the emergency department for chief complaint of dysuria and vaginal itching. Patient reports 4 days of dysuria and frequency. She also reports a thick white vaginal discharge with vaginal itching. She states her symptoms feel similar to UTIs and vaginal yeast infections that she has had in the past. She tried to get an appointment with her BOOKSTORE MANAGER but they were unable to accommodate her today. She reports some nausea with no vomiting. She denies any fever, chills, abdominal pain, diarrhea or constipation. Patient did try Azo [id number] which gave her some relief of the dysuria but the frequency has not resolved. Past Medical History: Negative Past Surgical History: appendectomy, tubal ligation Social History: Denies drugs alcohol and tobacco Family History: Reviewed and noncontributory for presenting illness Allergies: Reviewed, see documented allergy list. REVIEW OF SYSTEMS: CONSTITUTIONAL : No fever No chills No diaphoresis No recent illness EENT: No vision changes No congestion No sore throat CARDIOVASCULAR: No chest pain No palpitations RESPIRATORY: No shortness of breath No cough No difficulty breathing GASTROINTESTINAL: No abdominal pain No nausea No vomiting No diarrhea GENITOURINARY: dysuria Urinary frequency Vaginal itching Vaginal discharge No hematuria No difficulty urinating MUSCULOSKELETAL: No back pain No leg pain No arm pain SKIN: No rashes No lesions LYMPHATIC: No swollen, enlarged glands. NEUROLOGICAL: No lightheadedness No headache No weakness No paresthesias PSYCHIATRIC: No anxiety No depression PHYSICAL EXAMINATION: Vital signs reviewed, nursing noted reviewed. GENERAL: Well-appearing, well-nourished and in no acute distress. HEAD: Atraumatic, normocephalic. EYES: Eyes appear normal, extraocular movements intact, sclera anicteric, conjunctiva are normal. ENT: nares patent, oropharynx clear without exudates. Moist mucous membranes. NECK: Normal range of motion, supple without lymphadenopathy LUNGS: Breath sounds clear to auscultation bilaterally and equal. No wheezes rales or rhonchi. HEART: Regular rate and rhythm without murmurs ABDOMEN: Soft, nontender, normoactive bowel sounds. No rebound, guarding, or rigidity. No masses appreciated. EXTREMITIES: Nontender, good range of motion, no pitting or edema. NEUROLOGICAL: No focal neurological deficits. Moves all extremities spontaneously Motor and sensory grossly intact on exam. PSYCH: Normal mood, normal affect. SKIN: Warm, Dry, normal turgor, no rashes or lesions noted on exposed skin - Related Data Allergies/Adverse Reactions: No Known Allergies Allergy (Verified 09/09/18 13:36) Past Medical History - Social History Smoking Status: Never Smoker Family History: Reviewed & Not Pertinent Renal/ Medical History: Denies: Hx Peritoneal Dialysis Psychiatric Medical History: Denies: Hx Depression Past Surgical History: Reports: Hx Appendectomy, Hx Tubal Ligation - Immunizations Immunizations up to date: Yes Hx Diphtheria, Pertussis, Tetanus Vaccination: Yes Physical Exam - Vital signs Vitals: Temp Pulse Resp BP Pulse Ox 98.3 F 75 18 127/60 H 75 L 09/09/18 13:38 09/09/18 13:38 09/09/18 13:38 09/09/18 13:38 09/09/18 13:38 Course - Re-evaluation Re-evalutation: 09/09/18 14:04 Vitals reviewed. Nursing notes reviewed. Patient afebrile and nontoxic in appearance. Abdominal exam is benign. She will be treated for yeast infection with Diflucan. Urinalysis obtained to evaluate for infection and currently pending. 09/09/18 14:41 UA negative for infection given a prescription for repeat dosing of Diflucan if symptoms are continuing in 1 week. She will follow with gynecology for reevaluation in the next few days. Laboratory 09/09/18 13:35 Urine Color YELLOW Urine Appearance CLOUDY Urine pH 7.0 Ur Specific [place] 1.013 Urine Protein NEGATIVE Urine Glucose (UA) NEGATIVE Urine Ketones NEGATIVE Urine Blood NEGATIVE Urine Nitrite NEGATIVE Urine Bilirubin NEGATIVE Urine Urobilinogen NEGATIVE Ur Leukocyte Esterase NEGATIVE Urine WBC (Auto) 8 Urine RBC (Auto) 10 Urine Bacteria (Auto) 1+ Squamous Epi Cells Auto 27 Urine Mucus (Auto) OCC Urine Ascorbic Acid NEGATIVE - Vital Signs Vital signs: Temp Pulse Resp BP Pulse Ox 98.3 F 75 18 127/60 H 75 L 09/09/18 13:38 09/09/18 13:38 09/09/18 13:38 09/09/18 13:38 09/09/18 13:38 Discharge - Discharge Clinical Impression: Yeast vaginitis Condition: Stable Disposition: HOME, SELF-CARE Instructions: Vaginal Yeast Infection ([facility]) Additional Instructions: Please return to the emergency department if you have any worsening, or concern of your symptoms. Please return to the emergency department if you develop chest pain, difficulty breathing, severe abdominal pain, or ongoing vomiting. If prescribed, take all medications as directed. If you have any questions or concerns do not hesitate to return the emergency department for evaluation. Follow with your BOOKSTORE MANAGER in 1 week if symptoms are not improving In 7 days if you are still having vaginal itching and vaginal discharge fill the Diflucan prescription and take the second dose. Prescriptions: Fluconazole [Diflucan] 150 mg PO ONCE PRN #1 tablet PRN Reason: Referrals: [facility] [Provider Group] - Follow up as needed
[2018-09-09 14:34] LABS: APPEARANCE,URINE CLOUDY; BILIRUBIN,URINE NEGATIVE (NEGATIVE); COLOR,URINE YELLOW; GLUCOSE, URINE NEGATIVE (NEGATIVE); KETONES,URINE NEGATIVE (NEGATIVE); LEUKOCYTE ESTERASE,URINE NEGATIVE (NEGATIVE); NITRITE,URINE NEGATIVE (NEGATIVE); PROTEIN,URINE NEGATIVE (NEGATIVE); URINE SPECIFIC GRAVITY 1.013; UROBILINOGEN,URINE NEGATIVE mg/dL (<2.0)
[2018-09-09 15:32] VITALS: BP 106/62
== END 2018-09-09 15:35 | disposition home or self-care (01) ==
LOC: ER 13:30
DX: B37.3 Candidiasis of vulva and vagina (principal); R35.0 Frequency of micturition; R11.0 Nausea; Z87.440 Personal history of urinary (tract) infections
CPT/HCPCS: 81001; 99283

== ENCOUNTER 2018-09-19 20:00 | Emergency (ER) | payer SELFPAY ==
[2018-09-19 20:23] VITALS: BP 115/57
--- NOTE | 2018-09-19 20:56 | EKG REPORT ---
SEVERITY:- NORMAL ECG - SINUS RHYTHM : Confirmed by: Tawana Beckford MD 19-Sep-2018 20:55:38
== END 2018-09-19 22:30 | disposition left against medical advice (07) ==
LOC: ER 20:00
DX: Z53.21 Procedure and treatment not carried out due to patient leaving prior to being seen by health care provider (principal)
CPT/HCPCS: 93005; 93010

== ENCOUNTER 2018-09-24 18:40 | Emergency (ER) | payer SELFPAY ==
--- NOTE | 2018-09-24 19:27 | ER Document Report ---
ED Medical Screen (RME) - General Chief Complaint: Chest Pain Stated Complaint: CHEST PAIN Time Seen by Provider: 09/24/18 19:20 Primary Care Provider: THANIA SPRAGUE NP [Primary Care Provider] - Follow up as needed TRAVEL OUTSIDE OF THE [place] IN LAST 30 DAYS: No - HPI Notes: 09/24/18 19:26 Patient is a 32-year-old female with no significant past medical history who presents the emergency department complaining of left sternal chest pain times 2 days that does not radiate. She is eating and drinking without difficulty. Patient describes the pain as sharp. She is not aware of anything that worsens or improves her pain. Denies any headache, fever, URI, sore throat, palpitations, syncope, cough, shortness of breath, wheeze, dyspnea, abdominal pain, nausea/vomiting/diarrhea, urinary retention, dysuria, hematuria, back pain, or rash. I have treated and performed a rapid initial assessment of this patient. A comprehensive ED assessment and evaluation of the patient, analysis of test results and completion of medical decision making process will be conducted by additional ED providers. PHYSICAL EXAMINATION: GENERAL: Well-appearing, well-nourished and in no acute distress. A&Ox4. Answers questions appropriately. LUNGS: Breath sounds clear to auscultation bilaterally and equal. No wheezes rales or rhonchi. HEART: Regular rate and rhythm without murmurs, rubs, gallops. Extremities: No cyanosis, clubbing, or edema b/l. NEUROLOGICAL: Normal speech, normal gait. PSYCH: Normal mood, normal affect. - Related Data Allergies/Adverse Reactions: No Known Allergies Allergy (Verified 09/24/18 19:25) Past Medical History Renal/ Medical History: Denies: Hx Peritoneal Dialysis Psychiatric Medical History: Denies: Hx Depression Past Surgical History: Reports: Hx Appendectomy, Hx Tubal Ligation - Immunizations Immunizations up to date: Yes Hx Diphtheria, Pertussis, Tetanus Vaccination: Yes Physical Exam - Vital signs Vitals: Temp Pulse Resp BP Pulse Ox 97.9 F 74 18 113/51 L 99 09/24/18 18:54 09/24/18 18:54 09/24/18 18:54 09/24/18 18:54 09/24/18 18:54 Course - Vital Signs Vital signs: Temp Pulse Resp BP Pulse Ox 97.9 F 74 18 113/51 L 99 09/24/18 18:54 09/24/18 18:54 09/24/18 18:54 09/24/18 18:54 09/24/18 18:54 Doctor's Discharge - Discharge Referrals: THANIA SPRAGUE, [employer] [Primary Care Provider] - Follow up as needed
[2018-09-24 20:18] LABS: ABSOLUTE BASOPHILS # (AUTO) 0.1 10^3/uL (0.0-0.2); ABSOLUTE EOSINOPHILS # (AUTO) 0.3 10^3/uL (0.0-0.6); ABSOLUTE LYMPHOCYTES (AUTO) 3.4 10^3/uL (0.5-4.7); ABSOLUTE MONOCYTES (AUTO) 0.8 10^3/uL (0.1-1.4); ABSOLUTE NEUT (AUTO) 7.8 10^3/uL (1.7-8.2); BASOPHILS % (AUTO) 0.5 % (0-2); EOSINOPHILS % (AUTO) 2.1 % (0-6); HEMATOCRIT 40.1 % (36.0-47.0); HEMOGLOBIN 13.7 g/dL (12.0-15.5); LYMPHOCYTES % (AUTO) 27.5 % (13-45); MEAN CORPUSCULAR HEMOGLOBIN 28.7 pg (27.0-33.4); MEAN CORPUSCULAR HGB CONC 34.2 g/dL (32.0-36.0); MEAN CORPUSCULAR VOLUME 84 fl (80-97); MONOCYTES % (AUTO) 6.6 % (3-13); PLATELET COUNT 392 10^3/uL (150-450); RED BLOOD COUNT 4.77 10^6/uL (3.72-5.28); RED CELL DISTRIBUTION WIDTH 13.5 % (11.5-14.0); SEGMENTED NEUTROPHILS % (AUTO) 63.3 % (42-78); TOTAL CELLS COUNTED % (AUTO) 100 %; WHITE BLOOD COUNT 12.4 10^3/uL (4.0-10.5)
--- NOTE | 2018-09-24 20:24 | RADIOLOGY REPORT (SQ) ---
EXAM DESCRIPTION: XR CHEST 1 VIEW COMPLETED DATE/TME: 09/24/2018 19:25 CLINICAL HISTORY: 32 years, Female, CP COMPARISON: CT chest 07/31/2017 FINDINGS: Borderline heart size unchanged. The mediastinum is not enlarged. No evidence for acute lung pleural bone abnormalities. IMPRESSION: No acute findings.
[2018-09-24 20:38] LABS: ALANINE AMINOTRANSFERASE 31 U/L (9-52); ALBUMIN 4.1 g/dL (3.5-5.0); ALKALINE PHOSPHATASE 78 U/L (38-126); ANION GAP 7 (5-19); ASPARTATE AMINO TRANSFERASE 20 U/L (14-36); BILIRUBIN,DIRECT 0.2 mg/dL (0.0-0.4); BILIRUBIN,TOTAL 0.3 mg/dL (0.2-1.3); BLOOD UREA NITROGEN 13 mg/dL (7-20); CALCIUM 9.5 mg/dL (8.4-10.2); CARBON DIOXIDE 27 mmol/L (22-30); CHLORIDE 103 mmol/L (98-107); GLUCOSE 93 mg/dL (75-110); POTASSIUM 4.1 mmol/L (3.6-5.0); SODIUM 136.7 mmol/L (137-145); TOTAL PROTEIN 7.3 g/dL (6.3-8.2)
--- NOTE | 2018-09-24 22:42 | ER Document Report ---
ED General - General Chief Complaint: Chest Pain Stated Complaint: CHEST PAIN Time Seen by Provider: 09/24/18 19:20 Primary Care Provider: THANIA SPRAGUE NP [Primary Care Provider] - 09/26/18 Notes: Patient is a pleasant 32-year-old female who presents with complaint of chest pain. She has pain is in her left chest wall. She says it improves if she lifts her arm above her head. No difficulty breathing. No fevers. No leg pain or leg swelling. No history of coronary disease. No other complaints at this time. TRAVEL OUTSIDE OF THE [place] IN LAST 30 DAYS: No - Related Data Allergies/Adverse Reactions: No Known Allergies Allergy (Verified 09/24/18 19:25) Past Medical History - Social History Smoking Status: Never Smoker Chew tobacco use (# tins/day): No Frequency of alcohol use: None Drug Abuse: None Family History: Reviewed & Not Pertinent Patient has suicidal ideation: No Patient has homicidal ideation: No Renal/ Medical History: Denies: Hx Peritoneal Dialysis Psychiatric Medical History: Denies: Hx Depression Past Surgical History: Reports: Hx Appendectomy, Hx Tubal Ligation - Immunizations Immunizations up to date: Yes Hx Diphtheria, Pertussis, Tetanus Vaccination: Yes Review of Systems - Review of Systems Notes: My Normal Review Basic REVIEW OF SYSTEMS: CONSTITUTIONAL : Denies fever, chills, or sweats. Denies recent illness. EENT: Denies eye, ear, throat, or mouth pain or symptoms. Denies nasal or sinus congestion. CARDIOVASCULAR: As chest pain. RESPIRATORY: Denies cough, cold, or chest congestion. Denies shortness of breath, difficulty breathing, or wheezing. GASTROINTESTINAL: Denies abdominal pain. Denies nausea, vomiting, or diarrhea. MUSCULOSKELETAL: Denies neck or back pain or joint pain or swelling. SKIN: Denies rash or skin lesions. NEUROLOGICAL: Denies altered mental status or loss of consciousness. Denies headache. Denies weakness or paralysis or loss of use of either side. Denies problems with gait or speech. Denies sensory or motor loss. ALL OTHER SYSTEMS REVIEWED AND NEGATIVE. Physical Exam - Vital signs Vitals: Temp Pulse Resp BP Pulse Ox 97.9 F 74 18 113/51 L 99 09/24/18 18:54 09/24/18 18:54 09/24/18 18:54 09/24/18 18:54 09/24/18 18:54 - Notes Notes: General Appearance: Well nourished, alert, cooperative, no acute distress, no obvious discomfort. Vitals: reviewed, See vital signs table. Eyes: PERRL, EOMI, Conjuctiva clear Mouth: No decreasd moisture Neck: Supple, no neck tenderness, No thyromegaly Chest wall: Patient does have some reproducible pain to palpation over the left chest wall. Lungs: No wheezing, No rales, No rhonci, No accessory muscle use, good air exchange bilaterally. Heart: Normal rate, Regular rythm, No murmur, no rub Abdomen: Normal BS, soft, No rigidity, No abdominal tenderness, No guarding, no rebound, no abdominal masses, no organomegaly Extremities: good pulses in all extremities, no edema. Skin: warm, dry, appropriate color, no rash Neuro: speech clear, oriented x 3, normal affect, responds appropriately to questions. Course - Re-evaluation Re-evalutation: 09/24/18 22:57 Patient looks very well on exam. I feel she is safe to be discharged home. She has mild pain is easily reproducible to palpation. Pain is also improved when she puts her arm in a certain position which suggest that this is probably related to muscular skeletal pain such as pectoralis muscle. I encouraged her to return to the ER if she has worsening pain, difficulty breathing, or feels that she is worsening in any way. I do not suspect coronary disease as patient only has a heart score of 1 and his other kidd very healthy with only risk factor being a little bit overweight. I do not suspect PE as the patient is not tachycardic, not tachypneic, not hypoxemic, and she does not have pleuritic type pain. Dictation of this chart was performed using voice recognition software; therefore, there may be some unintended grammatical errors. - Vital Signs Vital signs: Temp Pulse Resp BP Pulse Ox 98.7 F 74 20 100/68 99 09/24/18 23:05 09/24/18 18:54 09/24/18 23:05 09/24/18 23:05 09/24/18 23:05 - Laboratory Result Diagrams: 09/24/18 19:55 09/24/18 19:55 Laboratory results interpreted by me: 09/24/18 09/24/18 19:55 19:55 WBC 12.4 H Sodium 136.7 L - EKG Interpretation by Me Additional EKG results interpreted by me: 09/24/18 22:42 EKG is reviewed and interpreted by me. EKG shows sinus rhythm with a rate of [address] segment elevation or depression. No ischemic T wave inversions. SC interval, QRS duration, QT intervals are within normal range. Patient does have small Q waves in lead III however this is unchanged comparison to her previous EKG from September 19, 2018. Discharge - Discharge Clinical Impression: Chest pain Qualifiers: Chest pain type: unspecified Qualified Code(s): R07.9 - Chest pain, unspecified Condition: Good Disposition: HOME, SELF-CARE Additional Instructions: Currently there is no evidence of a dangerous etiology behind her chest pain. Chest pain I suspect may be related to the underlying muscles and chest wall being that improves when you lift her arm above her head and also that is tender with palpation over the area. Please try to avoid excessive heavy lifting. Please follow-up with your doctor this week for reevaluation. Please return to the ER immediately if you have worsening pain, change in location of pain, or difficulty breathing. Referrals: THANIA SPRAGUE NP [Primary Care Provider] - 09/26/18
[2018-09-24 23:10] VITALS: BP 100/68
--- NOTE | 2018-09-25 07:55 | EKG REPORT ---
SEVERITY:- BORDERLINE ECG - SINUS RHYTHM INFERIOR Q WAVES, PROBABLY NORMAL VARIATION UNCHANGED FROM 09/19/18 EKG : Confirmed by: Javad Whitten MD 25-Sep-2018 07:54:55
== END 2018-09-24 23:14 | disposition home or self-care (01) ==
LOC: ER 18:40
DX: R07.89 Other chest pain (principal)
CPT/HCPCS: 36415; 71045; 80053; 84484; 84703; 85025; 93005; 93010; 99284

== ENCOUNTER 2018-12-25 14:33 | Emergency (ER) | payer SELFPAY ==
[2018-12-25] MEDS ORDERED: PHENAZOPYRIDINE HCL 200 MG TABLET PO ONE (14:54)
--- NOTE | 2018-12-25 15:06 | ER Document Report ---
HPI - HPI Patient complains to provider of: Urinary frequency and burning Time Seen by Provider: 12/25/18 14:50 Onset: Other - 2 days Onset/Duration: Persistent Quality of pain: Burning Pain Level: 2 Context: Patient presents to the emergency department with complaints of she thinks she may have a UTI. She reports urinary frequency and burning with itchiness for the past 2 days. She reports she used Azo with relief of symptoms but quit using Azo the symptoms return. She denies fever vomiting diarrhea. She denies vaginal discharge. Patient does not think she has an STD. Associated Symptoms: None Exacerbated by: Other - void Relieved by: Denies Similar symptoms previously: Yes Recently seen / treated by doctor: No - REPRODUCTIVE Reproductive: DENIES: : Past Medical History - General Information source: Patient Last Menstrual Period: last october- BTL - Social History Smoking Status: Unknown if Ever Smoked Cigarette use (# per day): No Frequency of alcohol use: None Drug Abuse: None Family History: Reviewed & Not Pertinent Patient has suicidal ideation: No Patient has homicidal ideation: No - Medical History Medical History: Negative Renal/ Medical History: Denies: Hx Peritoneal Dialysis Psychiatric Medical History: Denies: Hx Depression Past Surgical History: Reports: Hx Appendectomy, Hx Tubal Ligation - Immunizations Immunizations up to date: Yes Hx Diphtheria, Pertussis, Tetanus Vaccination: Yes Vertical Provider Document - CONSTITUTIONAL Agree With Documented VS: Yes Exam Limitations: No Limitations General Appearance: WD/WN, No Apparent Distress - INFECTION CONTROL TRAVEL OUTSIDE OF THE [place] IN LAST 30 DAYS: No - HEENT HEENT: Atraumatic, Normocephalic. negative: Conjuctival Injection - NECK Neck: Normal Inspection, Supple. negative: Lymphadenopathy-Left, Lymphadenopathy-Right - RESPIRATORY Respiratory: Breath Sounds Normal, No Respiratory Distress - CARDIOVASCULAR Cardiovascular: Regular Rate, Regular Rhythm - GI/ABDOMEN Gastrointestinal: Abdomen Soft, Abdomen Non-Tender - BACK Back: Normal Inspection. negative: CVA Tenderness-Right, CVA Tenderness-Left - MUSCULOSKELETAL/EXTREMETIES Musculoskeletal/Extremeties: CARMELITA GAMBLE - NEURO Level of Consciousness: Awake, Alert, Appropriate Motor/Sensory: No Motor Deficit - DERM Integumentary: Warm, Dry Course - Re-evaluation Re-evalutation: 12/25/18 15:35 UA with + leukocytes, will treat with macrobid, pt instructed on UA results. Instructed on urine culture pending. She is verbalized understanding to all instructions. Dictation of this chart was performed using voice recognition software; therefore, there may be some unintended grammatical errors. Discharge - Discharge Clinical Impression: Dysuria Condition: Stable Disposition: HOME, SELF-CARE Instructions: Nitrofurantoin ([facility]), Urinary Anesthetic Agent ([facility]), Urinary Tract Infection ([facility]) Additional Instructions: *You have been evaluated for pain while voiding, UTI *Take medication as prescribed * A urine culture has been ordered. If you need different antibiotics she will be contacted within 1 week. *Push fluids *Follow up with your primary care provider in one week *Plan urine recheck in one week *Return to ED for worsening condition, changes, needs Prescriptions: Nitrofurantoin/Nitrofuran Mac [Macrobid 100 mg Capsule] 100 mg PO BID #20 capsule Phenazopyridine HCl [Pyridium 200 mg Tablet] 200 mg PO TID #15 tablet Referrals: THANIA SPRAGUE NP [Primary Care Provider] - Follow up in 1 week
[2018-12-25 15:10] LABS: APPEARANCE,URINE CLOUDY; BILIRUBIN,URINE NEGATIVE (NEGATIVE); COLOR,URINE YELLOW; GLUCOSE, URINE NEGATIVE (NEGATIVE); KETONES,URINE NEGATIVE (NEGATIVE); LEUKOCYTE ESTERASE,URINE LARGE (NEGATIVE); NITRITE,URINE NEGATIVE (NEGATIVE); PROTEIN,URINE 30 mg/dL (NEGATIVE); URINE SPECIFIC GRAVITY 1.023; UROBILINOGEN,URINE NEGATIVE mg/dL (<2.0)
[2018-12-25] MEDS ORDERED: NITROFURANTOIN MONOHYD/M-CRYST 100 MG CAPSULE PO ONE (15:32)
== END 2018-12-25 15:44 | disposition home or self-care (01) ==
LOC: ER 14:33
DX: R30.0 Dysuria (principal); Z98.51 Tubal ligation status
CPT/HCPCS: 99283; 87086; 81025; 81001; J3490; J8499

== ENCOUNTER 2019-02-17 16:39 | Emergency (ER) | payer SELFPAY ==
[2019-02-17] MEDS ORDERED: ACETAMINOPHEN 325 MG TABLET PO ONE (17:32)
--- NOTE | 2019-02-17 18:22 | ER Document Report ---
HPI - HPI Time Seen by Provider: 02/17/19 17:16 Pain Level: 5 Notes: This is an otherwise healthy 33-year-old female presented to the emergency department chief complaint of fever, body aches, sore throat and mild cough that started yesterday. Patient denies any sick contacts. She states she has tried taking Tylenol at home for her fever which has provided her some relief. She denies any nausea, vomiting or diarrhea. She reports that she has not had much of an appetite but has been drinking fluids. Her last dose of Tylenol prior to coming to the emergency department has been greater than 8 hours. - CONSTITUTIONAL Constitutional: REPORTS: Fever - 102, Chills - EENT EENT: REPORTS: Sore Throat - since yesterday - CARDIOVASCULAR Cardiovascular: REPORTS: Chest pain - "it always hurts" - REPRODUCTIVE Reproductive: DENIES: : Past Medical History - General Information source: Patient - Social History Smoking Status: Never Smoker Chew tobacco use (# tins/day): No Frequency of alcohol use: Rare Drug Abuse: None Family History: Reviewed & Not Pertinent Patient has suicidal ideation: No Patient has homicidal ideation: No - Medical History Medical History: Negative Renal/ Medical History: Denies: Hx Peritoneal Dialysis Psychiatric Medical History: Denies: Hx Depression Past Surgical History: Reports: Hx Appendectomy, Hx Tubal Ligation - Immunizations Immunizations up to date: Yes Hx Diphtheria, Pertussis, Tetanus Vaccination: Yes Vertical Provider Document - CONSTITUTIONAL Notes: PHYSICAL EXAMINATION: GENERAL: Mildly ill-appearing, well-nourished and in no acute distress. HEAD: Atraumatic, normocephalic. EYES: Pupils equal round and reactive to light, extraocular movements intact, conjunctiva are normal. ENT: Nares patent, oropharynx mildly erythematous without exudates or tonsillar swelling. Moist mucous membranes. NECK: Normal range of motion, supple without lymphadenopathy LUNGS: Breath sounds clear to auscultation bilaterally and equal. No wheezes rales or rhonchi. HEART: Regular rate and rhythm without murmurs ABDOMEN: Soft, nontender, nondistended abdomen. No guarding, no rebound. No masses appreciated. Female : No CVA tenderness. Musculoskeletal: Normal range of motion, no pitting or edema. No cyanosis. NEUROLOGICAL: Cranial nerves grossly intact. Normal speech, normal gait. Normal sensory, motor exams PSYCH: Normal mood, normal affect. SKIN: Warm, Dry, normal turgor, no rashes or lesions noted. - INFECTION CONTROL TRAVEL OUTSIDE OF THE [place] IN LAST 30 DAYS: No Course - Re-evaluation Re-evalutation: Patient was initially febrile on arrival and did appear mildly ill. Rapid strep was collected and was negative. She did receive antipyretics here in the emergency department and was able to drink Gatorade which did improve her symptoms. She likely has a viral illness. Vital signs were rechecked and were within normal limits prior to discharge. Patient instructed on discharge plan of care and was agreeable to same. Work note was provided. The patient's emergency department workup and current diagnosis were explained to the patient and or family. Follow-up instructions were provided. Medications if prescribed were discussed. Instructions for when to return to the emergency department including specific worrisome symptoms were discussed with the patient and/or family. - Vital Signs Vital signs: Temp Pulse Resp BP Pulse Ox 102.4 F H 108 H 18 111/42 L 94 02/17/19 16:47 02/17/19 16:47 02/17/19 16:47 02/17/19 16:47 02/17/19 16:47 Discharge - Discharge Clinical Impression: Flu-like symptoms Fever Qualifiers: Fever type: unspecified Qualified Code(s): R50.9 - Fever, unspecified Condition: Stable Disposition: HOME, SELF-CARE Additional Instructions: Viral Syndrome The physician has diagnosed a viral infection. Viruses not only cause "colds," but can cause many different symptoms including generalized aching, fever, headache, cough, diarrhea, nausea, vomiting, and fatigue. The treatment, for the most part, is simply relief of symptoms. This means that antibiotics are usually not given. Rest, fluids, pain medications and, occasionally, medication for the specific symptoms that are most bothersome will be prescribed. Use good handwashing to avoid passing the virus to others. Shared toys should be cleaned with disinfectant. Clean the toilets, sinks, and counter surfaces in bathrooms. Launder clothing in hot water. Contact the physician if you develop any new or unusual symptoms such as severe headache, stiff neck, high fever, chest pain, productive cough, or shortness of breath. You should be rechecked if you don't see marked improvement within seven to 10 days. The rapid strep test today was negative. Throat culture is pending. Take medication as prescribed. Drink plenty of clear fluids (broth, jello, gatorade, water, popsicles, etc). No work for the next 2 days. Follow up with your primary care physician if not better if 48 hours. Return to the ER if worsening. Prescriptions: Codeine Phosphate/Guaifenesin [Cheratussin AC Syrup] 10 ml PO QHS #120 ml Prednisone [Deltasone 20 mg Tablet] 3 tab PO DAILY 5 Days #15 tablet Forms: Return to Work Referrals: THANIA SPRAGUE, [employer] [Primary Care Provider] - Follow up as needed
[2019-02-17 18:50] VITALS: BP 114/59
== END 2019-02-17 18:48 | disposition home or self-care (01) ==
LOC: ER 16:39
DX: J02.9 Acute pharyngitis, unspecified (principal); R50.9 Fever, unspecified; M79.10 Myalgia, unspecified site; Z98.51 Tubal ligation status
CPT/HCPCS: 87070; 87077; 87880

== ENCOUNTER 2019-05-27 11:58 | Emergency (ER) | payer SELFPAY ==
[2019-05-27] MEDS ORDERED: PHENAZOPYRIDINE HCL 200 MG TABLET PO ONE (13:26)
--- NOTE | 2019-05-27 13:32 | ER Document Report ---
HPI - HPI Patient complains to provider of: Dysuria Time Seen by Provider: 05/27/19 13:22 Onset: Other - Days Onset/Duration: Persistent Quality of pain: Burning Pain Level: 0 Context: 33-year-old female presents emergency department with complaints of burning with void and vaginal discharge. Patient reports symptoms for the past 4 days. Reports that she has had this vaginal discharge in the past denies itchiness. She reports she is not concerned about STD. Denies fever vomiting diarrhea. Associated Symptoms: None Exacerbated by: Other - Voiding Relieved by: Denies Similar symptoms previously: No Recently seen / treated by doctor: No - REPRODUCTIVE Reproductive: DENIES: : Past Medical History - General Information source: Patient - Social History Smoking Status: Never Smoker Chew tobacco use (# tins/day): No Frequency of alcohol use: None Drug Abuse: None Occupation: [employer] Family History: Reviewed & Not Pertinent Patient has suicidal ideation: No Patient has homicidal ideation: No - Medical History Medical History: Negative Renal/ Medical History: Denies: Hx Peritoneal Dialysis Psychiatric Medical History: Denies: Hx Depression Past Surgical History: Reports: Hx Appendectomy, Hx Tubal Ligation - Immunizations Immunizations up to date: Yes Hx Diphtheria, Pertussis, Tetanus Vaccination: Yes Vertical Provider Document - CONSTITUTIONAL Agree With Documented VS: Yes Exam Limitations: No Limitations General Appearance: WD/WN, No Apparent Distress - INFECTION CONTROL TRAVEL OUTSIDE OF THE [place] IN LAST 30 DAYS: No - HEENT HEENT: Atraumatic, Normocephalic. negative: Conjuctival Injection - NECK Neck: Normal Inspection, Supple - RESPIRATORY Respiratory: Breath Sounds Normal, No Respiratory Distress - CARDIOVASCULAR Cardiovascular: Regular Rate, Regular Rhythm - GI/ABDOMEN Gastrointestinal: Abdomen Soft, Abdomen Non-Tender - BACK Back: Normal Inspection. negative: CVA Tenderness-Right, CVA Tenderness-Left - MUSCULOSKELETAL/EXTREMETIES Musculoskeletal/Extremeties: CARMELITA GAMBLE - NEURO Level of Consciousness: Awake, Alert, Appropriate Motor/Sensory: No Motor Deficit - DERM Integumentary: Warm, Dry Course - Re-evaluation Re-evalutation: 05/27/19 13:28 33-year-old female presents with complaints of pain with void for the past 4 days. She reports vaginal discharge but reports she has had this before. She is not concerned about STD. Denies fever vomiting diarrhea. Pyridium and urinalysis ordered 05/27/19 14:19 UA with moderate leukocytes WBCs. Will be treated with Macrobid Pyridium. Also instructed follow-up with primary care next week for recheck. Urine Color YELLOW 05/27/19 13:30 Urine Appearance CLOUDY 05/27/19 13:30 Urine pH 5.0 (5.0-9.0) 05/27/19 13:30 Ur Specific Kempner 1.019 05/27/19 13:30 Urine Protein NEGATIVE mg/dL (NEGATIVE) 05/27/19 13:30 Urine Glucose (UA) NEGATIVE mg/dL (NEGATIVE) 05/27/19 13:30 Urine Ketones NEGATIVE mg/dL (NEGATIVE) 05/27/19 13:30 Urine Blood SMALL (NEGATIVE) H 05/27/19 13:30 Urine Nitrite NEGATIVE (NEGATIVE) 05/27/19 13:30 Ur Leukocyte Esterase MODERATE (NEGATIVE) H 05/27/19 13:30 Urine WBC (Auto) 11 /HPF 05/27/19 13:30 Urine RBC (Auto) 3 /HPF 05/27/19 13:30 Dictation of this chart was performed using voice recognition software; therefore, there may be some unintended grammatical errors. - Vital Signs Vital signs: Temp Pulse Resp BP Pulse Ox 98.1 F 65 20 108/69 98 05/27/19 13:23 05/27/19 13:23 05/27/19 13:23 05/27/19 13:23 05/27/19 13:23 Discharge - Discharge Clinical Impression: Burning with void, UTI (urinary tract infection) Condition: Stable Disposition: HOME, SELF-CARE Instructions: Nitrofurantoin ([facility]), Urinary Anesthetic Agent ([facility]), Urinary Tract Infection ([facility]) Additional Instructions: *You have been evaluated for pain while voiding, UTI *Take medication as prescribed *Push fluids *Follow up with your primary care provider within one week *Return to ED for worsening condition, changes, needs Prescriptions: Nitrofurantoin Macrocrystal [Macrodantin] 100 mg PO BID #20 capsule Phenazopyridine HCl [Pyridium 200 mg Tablet] 200 mg PO TID #15 tablet Referrals: THANIA SPRAGUE, [facility] [Primary Care Provider] - Follow up in 1 week
[2019-05-27 14:01] LABS: APPEARANCE,URINE CLOUDY; BILIRUBIN,URINE NEGATIVE (NEGATIVE); COLOR,URINE YELLOW; GLUCOSE, URINE NEGATIVE (NEGATIVE); KETONES,URINE NEGATIVE (NEGATIVE); LEUKOCYTE ESTERASE,URINE MODERATE (NEGATIVE); NITRITE,URINE NEGATIVE (NEGATIVE); PROTEIN,URINE NEGATIVE (NEGATIVE); URINE SPECIFIC GRAVITY 1.019; UROBILINOGEN,URINE NEGATIVE mg/dL (<2.0)
[2019-05-27 15:25] VITALS: BP 101/56
== END 2019-05-27 14:50 | disposition home or self-care (01) ==
LOC: ER 11:58
DX: N39.0 Urinary tract infection, site not specified (principal); R30.0 Dysuria; N89.8 Other specified noninflammatory disorders of vagina
CPT/HCPCS: 99283; 87086; 81025; 81001; J3490

== ENCOUNTER 2020-03-02 14:34 | Emergency (ER) | payer OTHER ==
[2020-03-02 14:41] VITALS: BP 96/58
[2020-03-02] MEDS ORDERED: IBUPROFEN 800 MG TABLET PO ONE (15:13)
--- NOTE | 2020-03-02 15:19 | ER Document Report ---
ED Extremity Problem, Lower - General Chief Complaint: Leg Injury Stated Complaint: FALL/LEFT FOOT,ANKLE PAIN Time Seen by Provider: 03/02/20 15:06 Primary Care Provider: [facility] [Provider Group] - Follow up as needed THANIA SPRAGUE NP [Primary Care Provider] - Follow up as needed Mode of Arrival: Wheelchair Information source: Patient Notes: 34-year-old female presented to ED for complaint of pain to the top of the foot the ankle and the knee. She states it actually hurts all the way from the bottom of her foot to the knee. She states it is a sharp 5 out of 5 pain. She does have pain with any movement to the ankle with palpation to the top of the foot and with palpation to the knee. She is alert oriented respirations regular and labored and speaking in full sentences. She states she was moving when she fell out of a [employer] truck. She states she does not smoke drink or use any illicit drugs. She states she does work for [employer] and lives with her daughters. She has past medical history of an appendectomy and a bilateral tubal ligation. REVIEW OF SYSTEMS: CONSTITUTIONAL : Denies fever, chills, or sweats. Denies recent illness. EENT: Denies eye, ear, throat, or mouth pain or symptoms. Denies nasal or sinus congestion. MUSCULOSKELETAL: Patient states she has 5 out of 5 pain to the left foot ankle leg and knee. She states she fell out of a [employer] truck about 1230 landing on this leg. She states the pain is very sharp and with any movement of the ankle or knee she is in tears. HEMATOLOGIC : Denies easy bruising or bleeding. LYMPHATIC: Denies swollen, enlarged glands. NEUROLOGICAL: Denies altered mental status or loss of consciousness. Denies headache. Denies weakness or paralysis or loss of use of either side. Denies problems with gait or speech. Denies sensory or motor loss. PSYCHIATRIC: Denies anxiety or stress or depression. ALL OTHER SYSTEMS REVIEWED AND NEGATIVE. PHYSICAL EXAMINATION: GENERAL: Well-appearing, well-nourished and in no acute distress. HEAD: Atraumatic, normocephalic. EYES: Pupils equal round extraocular movements intact, conjunctiva are normal. ENT: Nares patent NECK: Normal range of motion LUNGS: No respiratory distress Musculoskeletal: 5 out of 5 pain to the left knee leg ankle and foot. She has severe tenderness to palpation to the knee leg ankle and foot. She is in tears with any range of motion to the knee ankle or foot NEUROLOGICAL: Unable to bear weight on the foot. PSYCH: Normal mood, normal affect. SKIN: Ecchymotic swollen tender ankle and foot TRAVEL OUTSIDE OF THE [place] IN LAST 30 DAYS: No - HPI Patient complains to provider of: Pain, Swelling Location: Ankle, Foot, Knee, Leg Occurred: This afternoon Where: Outdoors Onset/Duration: Sudden Quality of pain: Sharp Severity: Severe Pain Level: 5 Context: Fell Recent injury: Yes Associated symptoms: Unable to bear weight Exacerbated by: Hanging down, Movement Relieved by: Elevation, Ice, Rest - Related Data Allergies/Adverse Reactions: No Known Allergies Allergy (Verified 03/02/20 15:10) Past Medical History - General Information source: Patient - Social History Smoking Status: Never Smoker Frequency of alcohol use: None Drug Abuse: None Occupation: [employer] Lives with: Other Family History: Reviewed & Not Pertinent Patient has suicidal ideation: No Patient has homicidal ideation: No - Past Medical History Cardiac Medical History: Reports: None Pulmonary Medical History: Reports: None EENT Medical History: Reports: None Neurological Medical History: Reports: None Endocrine Medical History: Reports: None Renal/ Medical History: Reports: None Malignancy Medical History: Reports: None GI Medical History: Reports: None Musculoskeletal Medical History: Reports None Skin Medical History: Reports None Psychiatric Medical History: Reports: None Traumatic Medical History: Reports: None Infectious Medical History: Reports: None Past Surgical History: Reports: Hx Appendectomy, Hx Tubal Ligation - Immunizations Immunizations up to date: Yes Hx Diphtheria, Pertussis, Tetanus Vaccination: Yes Review of Systems - Review of Systems Respiratory: No symptoms reported Genitourinary: No symptoms reported Musculoskeletal: No symptoms reported Physical Exam - Vital signs Vitals: Temp Pulse Resp BP Pulse Ox 98.5 F 73 18 96/58 L 98 03/02/20 14:40 03/02/20 14:40 03/02/20 14:40 03/02/20 14:40 03/02/20 14:40 Course - Re-evaluation Re-evalutation: 03/02/20 16:32 The patient is nontoxic appearing with stable vitals. They are afebrile. Ankle exam shows no deformities with no obvious ligament instability. There is a normal pulse and sensation distally. There is no redness or signs of infection. X-rays show no acute fracture per the radiologist. Patient will be placed in an Gen wrap for comfort. Crutches will be offered and given if requested. Patient will be instructed to follow-up with not better in 1 week, sooner for increasing pain, fever, redness, numbness, tingling, weakness, any further concerns. Patient will be instructed to rest, ice, elevate their ankle. Patient also had a contusion to the knee. She was treated with an Gen wrap to the knee. Patient was discharged home after receiving ibuprofen. She states she will be driving and cannot receive anything stronger than that at this time. I have encouraged her to follow-up with orthopedics and have given her the name and number of the local orthopedics. - Vital Signs Vital signs: Temp Pulse Resp BP Pulse Ox 98.5 F 73 18 96/58 L 98 03/02/20 14:40 03/02/20 14:40 03/02/20 14:40 03/02/20 14:40 03/02/20 14:40 - Diagnostic Test Radiology reviewed: Image reviewed, Reports reviewed Procedures - Immobilization Left Knee Time completed: 16:38 Pre-Proc Neuro Vasc Exam: Normal Immobilizer type: Gen wrap Performed by: Provider assisted Post-Proc Neuro Vasc Exam: Normal Alignment checked and good: Yes Left Ankle Immobilizer type: Gen wrap, Ankle stirrup, Crutches Performed by: Provider assisted Post-Proc Neuro Vasc Exam: Normal Alignment checked and good: Yes Discharge - Discharge Clinical Impression: Fall Qualifiers: Encounter type: initial encounter Qualified Code(s): W19.XXXA - Unspecified fall, initial encounter Knee contusion Qualifiers: Encounter type: initial encounter Laterality: left Qualified Code(s): S80.02XA - Contusion of left knee, initial encounter Left ankle sprain Qualifiers: Encounter type: initial encounter Involved ligament of ankle: unspecified ligament Qualified Code(s): S93.402A - Sprain of unspecified ligament of left ankle, initial encounter Condition: Stable Disposition: HOME, SELF-CARE Additional Instructions: CONTUSION: Your injury has resulted in a contusion -- a crushing of the deep tissues. No injury to important structures was detected during the physician's exam. Contusions vary in the amount of pain they cause, and in the length of time required for healing. Typically, the area will become bruised, and will remain painful to touch for two or three weeks. However, most patients are back to working and playing within a few days. After the initial period of rest and cold-packs, your symptoms (together with the doctor's recommendations) will determine how rapidly you can get back to full activity. Usually this means "do what feels okay, but don't do things that hurt." If re-examination was recommended, it's important to follow up as instructed. Call the doctor or return any time if pain increases, if swelling becomes severe, if you develop numbness or weakness in an injured extremity, or if any other alarming symptoms occur. SPRAINED ANKLE: Your sprained ankle results from stretching or tearing of the ligaments which support the ankle. This usually results from twisting the foot inward and under. The ligaments will require time and protection in order to heal properly. Many ankle sprains are quite disabling, and should be taken seriously. The usual treatment for an ankle sprain is cold packs; protection with tape, splints, or wraps; elevation; and staying off the ankle for at least a day. As the ankle improves, you can walk IF it's not painful to bear weight. Sports are best postponed until healing is complete. More serious sprains usually require strengthening exercises after early healing. Your physician has assessed the seriousness of the ligament injury to your ankle. However, the treatment may change, depending on how your ankle progresses. If further exams were recommended, it is important that you follow through. Call the doctor if your foot becomes numb, painful, or severely swollen. GEN WRAP: A compression dressing (gen wrap) has been placed. This helps hold the area still. It limits swelling and internal bleeding. The wrap should be comfortably snug -- not tight. You should feel a sense of pressure, but not severe pain under the wrap. Unless the physician tells you otherwise, you can adjust the wrap for comfort. If the wrap causes symptoms suggesting it's too tight -- uncomfortable pressure, swelling or discoloration beyond the wrap, numbness, or severe pain -- you must loosen the wrap. If these symptoms don't resolve promptly, return for re-evaluation. SPLINT PRECAUTIONS: A splint has been placed. This will protect the area while healing begins. Your problem does NOT normally require a cast. It MUST, however, be held still! Keep the splint on ALL THE TIME until instructed to remove it by the doctor. As you begin to use the area, be careful. You shouldn't do anything which causes discomfort -- you may disturb the injury even with the splint in place. After the initial period of rest and elevation, if splint does not prevent pain when you move, come back. You may require placement of a different splint, or a cast. If there is unexpected severe pain, or numbness, discoloration, or swelling beyond the splint, you should return at once. If you feel that the splint has broken or become loose, come back. ANKLE STIRRUP SPLINT: You are to use an ankle brace called a stirrup splint. This type of brace allows you to place greater stresses on the ankle without risk of re-injury, and is often used for more severe ankle injuries such as avulsion fractures and ligament ruptures. The splint can be worn over a sock or tape. For proper support, wear the splint with a shoe over it. It's important that the splint fit properly. Adjust the heel tension, if needed. If your splint has air bladders, peel back the bottom of each air bladder, then move the Velcro attachment of the heel strap up or down. Air bladder pressure can be adjusted by pulling up the valve at the top, threading the air tube down into the main bladder, then blowing air into the bladder or sq ueezing it out. The two sides of the stirrup can be moved forward or back on your ankle by changing the attachment of the main straps. If you are unable to use the ankle comfortably in the splint, return for re-evaluation. USE OF CRUTCHES: The doctor has recommended that you not bear weight at this time. You will need to use crutches. Adjust the crutches so the tops come to about two inches under the armpit while you are standing upright. Use your hands -- not your armpits -- to support your weight. To get into a chair, support yourself with one crutch on the injured side. Hold the chair with the other hand, then lower yourself while putting all your weight on the good leg. Going up stairs is `good leg up, step up, then bring up crutches and bad leg.' Down stairs is `bad leg and crutches down, then bring good leg down.' If you develop numbness or swelling in an arm or hand, you are using the crutches incorrectly. Return if you are having any problems with the crutches. ICE & ELEVATION: Apply ice packs frequently against the painful area. Many different schedules are recommended, such as "20 minutes on, 20 minutes off" or "one hour ice, two hours rest." If you need to work, you may need to go longer between ice treatments. You should plan to have the area ice packed AT LEAST one-fourth of the time. The ice should be applied over the wrap, tape, or splint, or over a layer of cloth -- not directly against the skin. Some ice bags have a built-in cloth and can be put directly on the skin. Your injured part should be elevated as much as possible over the next 48 hours. Try to keep the injury above the level of the heart. Avoid use of the injured area. Elevation and rest will decrease the swelling. USE OF HMCQ-HID-GGARVYO IBUPROFEN: Ibuprofen (Advil, Nuprin, Medipren, Motrin IB) is a medication for fever and pain control. In addition, it has anti- inflammatory effects which may be beneficial, especially in the treatment of injuries. It's best to take ibuprofen with food. Persons with ulcer disease or allergy to aspirin should notify their physician of this before taking ibuprofen. Ibuprofen can be given every four to six hours, for a total of four doses daily. Age Pain or fever dose Antiinflammatory dose 6-8 yr 200 mg (1 tab) 200 mg (1 tab) 9-11 yr 200 mg (1 tab) 200-400 mg (1-2 tab) 11-14 yr 200-400 mg (1-2 tab) 400 mg (2 tab) 15-adult 400 mg (2 tab) 600 mg (3 tab) USE OF TYLENOL (ACETAMINOPHEN): Acetaminophen may be taken for pain relief or fever control. It's much safer than aspirin, offering a wider range of "safe" dosages. It is safe during . Some brand names are Tylenol, Panadol, Datril, Anacin 3, Tempra, and Liquiprin. Acetaminophen can be repeated every four hours. The following are maximum recommended dosages: WEIGHT Dose Drops Elixir Chewable(80mg) (LBS.) drprs=droppers tsp=teaspoon 6 40 mg 0.4 ml (1/2) 6-11 80 mg 0.8 ml (full) tsp 1 tab 12-16 120 mg 1 1/2 drprs 3/4 tsp 1 1/2 tabs 17-23 160 mg 2 drprs 1 tsp 2 tabs 24-30 240 mg 3 drprs 1 1/2 tsp 3 tabs 30-35 320 mg 2 tsp 4 tabs 36-41 360 mg 2 1/4 tsp 4 1/2 tabs 42-47 400 mg 2 1/2 tsp 5 tabs 48-53 480 mg 3 tsp 6 tabs 54-59 520 mg 3 1/4 tsp 6 1/2 tabs 60-64 560 mg 3 1/2 tsp 7 tabs 65-70 600 mg 3 3/4 tsp 7 1/2 tabs 71-76 640 mg 4 tsp 8 tabs 77-82 720 mg 4 1/2 tsp 9 tabs 83-88 800 mg 5 tsp 10 tabs >89 pounds or adults 650 mg to 900 mg Acetaminophen can be repeated every four hours. Maximum dose not to exceed 4000 mg a day. These maximum recommended dosages are slightly higher than the dosages written on the product container, but these dosages are very safe and below the toxic dosage for acetaminophen. FOLLOW-UP CARE: If you have been referred to a physician for follow-up care, call the physicians office for an appointment as you were instructed or within the next two days. If you experience worsening or a significant change in your symptoms, notify the physician immediately or return to the Emergency Department at any time for re-evaluation. Forms: Special Work Note Referrals: THANIA SPRAGUE NP [Primary Care Provider] - Follow up as needed [facility] [Provider Group] - Follow up as needed
--- NOTE | 2020-03-02 15:58 | RADIOLOGY REPORT (SQ) ---
EXAM DESCRIPTION: KNEE LEFT 4 VIEW IMAGES COMPLETED DATE/TIME: 03/02/2020 3:44 pm REASON FOR STUDY: Fall pain injury COMPARISON: None. NUMBER OF VIEWS: Four views. TECHNIQUE: AP, lateral, and both oblique radiographic images acquired of the left knee. LIMITATIONS: None. FINDINGS: MINERALIZATION: Normal. BONES: No acute fracture or dislocation. No worrisome bone lesions. JOINT: No effusion. SOFT TISSUES: No soft tissue swelling. No radio-opaque foreign body. OTHER: No other significant finding. IMPRESSION: NEGATIVE STUDY OF THE LEFT KNEE. NO RADIOGRAPHIC EVIDENCE OF ACUTE INJURY. TECHNICAL DOCUMENTATION: JOB ID: [id number] 2010 [employer]- All Rights Reserved Reading location - IP/workstation name: [email or web address]
--- NOTE | 2020-03-02 15:58 | RADIOLOGY REPORT (SQ) ---
EXAM DESCRIPTION: FOOT LEFT 2 VIEWS IMAGES COMPLETED DATE/TIME: 03/02/2020 3:44 pm REASON FOR STUDY: Fall pain injury COMPARISON: None. NUMBER OF VIEWS: Three views. TECHNIQUE: AP, lateral and oblique radiographic images acquired of the left foot. LIMITATIONS: None. FINDINGS: MINERALIZATION: Normal. BONES: No acute fracture or dislocation. JOINTS: The normal tarsometatarsal alignment is preserved. SOFT TISSUES: No soft tissue swelling or radiopaque foreign body. OTHER: No other finding. IMPRESSION: No acute osseous abnormality of the left foot. TECHNICAL DOCUMENTATION: JOB ID: [id number] 2010 [employer]- All Rights Reserved Reading location - IP/workstation name: [email or web address]
--- NOTE | 2020-03-02 15:59 | RADIOLOGY REPORT (SQ) ---
EXAM DESCRIPTION: ANKLE LEFT COMPLETE IMAGES COMPLETED DATE/TIME: 03/02/2020 3:44 pm REASON FOR STUDY: Fall pain injury COMPARISON: None. NUMBER OF VIEWS: Three views. TECHNIQUE: AP, lateral, and oblique radiographic images acquired of the left ankle. LIMITATIONS: None. FINDINGS: MINERALIZATION: Normal. BONES: No acute fracture or dislocation. The talar dome is intact. JOINTS: The ankle mortise is intact. SOFT TISSUES: No soft tissue swelling or radiopaque foreign body. The Achilles tendon silhouette is intact. OTHER: No other finding. IMPRESSION: No acute osseous abnormality of the left ankle. TECHNICAL DOCUMENTATION: JOB ID: [id number] 2010 [employer]- All Rights Reserved Reading location - IP/workstation name: [email or web address]
== END 2020-03-02 16:40 | disposition home or self-care (01) ==
LOC: ER 14:34
DX: S93.402A Sprain of unspecified ligament of left ankle, initial encounter (principal); S80.02XA Contusion of left knee, initial encounter; M79.672 Pain in left foot; W17.89XA Other fall from one level to another, initial encounter; Y93.E6 Activity, residential relocation
CPT/HCPCS: 99283